=== PATIENT | female | born 1980 | race African-American/Black ===

== ENCOUNTER 2016-04-11 14:47 | Inpatient (IN) | payer MEDICAID, OTHER ==
[2016-04-11] VITALS (14 sets, daily range): BP systolic 75–145; BP diastolic 45–114; PULSE 90–136; RESP 14–24; TEMP 98–103; O2SAT 96–99
[~2016-04-11] VITALS: Ht 154.9 cm; Wt 64.6 kg
[~2016-04-11 14:47] MED LIST: HUMALOG SQ; METF500T PO; ZITHTAB PO
[2016-04-11] MEDS ORDERED: SODIUM CHLOR 0.9% 1000 ML INJ 1,000 ML IV SCH (15:20)
--- NOTE | 2016-04-11 15:24 | PD ---
HPI Chief Complaint: GI Complaint Time Seen by Provider: 15:06 Travel History International Travel<30 days: No Contact w/Intl Traveler<30days: No Traveled to known affect area: No History of Present Illness HPI The patient is a 35-year-old female who presents to the emergency department for nausea, vomiting, and abdominal pain. The patient states her symptoms started several days ago nasal congestion, sinus symptoms, and then nausea and vomiting. The patient now complains of left lower quadrant abdominal pain associated with her nausea and vomiting. The patient notes poor oral intake since secondary to her persistent nausea and vomiting. The patient denies any diarrhea, but states she's not had a bowel movement since yesterday. The patient denies any dysuria, frequency, or urgency. The patient's previous abdominal surgeries include section. Her last menstrual cycle was March 03, 2017, she currently denies . Patient does have a history of diabetes and takes metformin and sliding scale regular insulin. Patient denies any known history of diverticulitis, pancreatitis, or biliary colic. Symptoms are moderate without any alleviating or exacerbating factors. PFSH Past Medical History Hx Anticoagulant Therapy: No High Cholesterol: Yes Diabetes: Yes (TYPE 2) Diminished Hearing: No ?: Not LMP: 03/27/16 : 4 Para: 2 Miscarriage: 0 : 1 Ovarian Cysts: Yes Past Surgical History Section: Yes Social History Alcohol Use: Yes (OCC) Tobacco Use: No Substance Use: No Allergies-Medications (Allergen,Severity, Reaction): Coded Allergies: Amoxicillin (Verified Allergy, Severe, RASH, 04/11/16) Menthol (Verified Allergy, Intermediate, HIVES, BURNING, 04/11/16) Penicillin (Verified Allergy, Intermediate, RASH, 04/11/16) *MDRO Multi-Drug Resistant Organism (Verified Adverse Reaction, Unknown, 02/25/16) MRSA (groin wound) - 09/18/15 Uncoded Allergies: icy hot (Adverse Reaction, Mild, Burning, 11/23/13) Burning skin Reported Meds & Prescriptions Reported Meds & Active Scripts Active Reported Humalog Inj (Insulin Human Lispro) 1,000 Unit/10 Ml Vial 1-9 Units SQ ACHS Max dose at bedtime:( )units; sugars< 70,(0)units; sugars 150-199,(1)unit; sugars 200-249,(3)units; sugars 250-299,(5)units; sugars 300-349,(7)units; sugars more than 349,(9)units. Metformin (Metformin HCl) 500 Mg Tab 1,000 Mg PO BIDPC With meals Review of Systems Except as stated in HPI: all other systems reviewed are Neg General / Constitutional: Positive: Fever HENT: Positive: Congestion Cardiovascular: No: Chest Pain or Discomfort Respiratory: No: Shortness of Breath Gastrointestinal: Positive: Nausea, Vomiting, Abdominal Pain, No: Diarrhea Genitourinary: No: Dysuria Musculoskeletal: No: Myalgias Skin: No Rash Physical Exam Narrative GENERAL: Awake, alert, pleasant 35-year-old female who appears her stated age and is in no acute respiratory distress. SKIN: Warm and dry. HEAD: Atraumatic. Normocephalic. EYES: Pupils equal and round. No scleral icterus. No injection or drainage. ENT: No nasal bleeding or discharge. Dry Mucous Membranes. NECK: Trachea midline. No JVD. CARDIOVASCULAR: Regular, tachycardic with a heart rate of 110. RESPIRATORY: No accessory muscle use. Clear to auscultation. Breath sounds equal bilaterally. GASTROINTESTINAL: Abdomen soft, mild epigastric tenderness, moderate left lower quadrant tenderness. No rebound tenderness, guarding, or rigidity. MUSCULOSKELETAL: No obvious deformities. No clubbing. No cyanosis. No edema. NEUROLOGICAL: Awake and alert. No obvious cranial nerve deficits. Motor grossly within normal limits. Normal speech. PSYCHIATRIC: Appropriate mood and affect; insight and judgment normal. Data Data Last Documented VS Vital Signs Date Time Temp Pulse Resp B/P Pulse Ox O2 Delivery O2 Flow Rate FiO2 04/11/16 15:03 99.7 115 16 145/114 99 Orders Complete Blood Count With Diff (04/11/16 15:20) Comprehensive Metabolic Panel (04/11/16 15:20) Lipase (04/11/16 15:20) Lactic Acid (04/11/16 15:20) Urinalysis - C+S If Indicated (04/11/16 15:20) Ct Abd/Pel W/O Iv Contrast (04/11/16 15:20) Iv Access Insert/Monitor (04/11/16 15:20) Ecg Monitoring (04/11/16 15:20) Oximetry (04/11/16 15:20) Morphine Inj (Morphine Inj) (04/11/16 15:30) Ondansetron Inj (Zofran Inj) (04/11/16 15:30) Sodium Chlor 0.9% 1000 Ml Inj (Ns 1000 M (04/11/16 15:20) Sodium Chloride 0.9% Flush (Ns Flush) (04/11/16 15:30) Famotidine Inj (Pepcid Inj) (04/11/16 15:30) Sodium Chlor 0.9% 1000 Ml Inj (Ns 1000 M (04/11/16 16:30) Resp Blood Gas Venous (04/11/16 ) Prochlorperazine Inj (Compazine Inj) (04/11/16 16:30) Urine Culture (04/11/16 15:35) Ciprofloxacin 400 Mg Premix (Cipro 400 M (04/11/16 17:00) Blood Gas Venous (Vbg) (04/11/16 16:46) Labs Laboratory Tests Test 04/11/16 04/11/16 04/11/16 15:35 15:41 16:46 White Blood Count 5.3 TH/MM3 Red Blood Count 5.07 MIL/MM3 Hemoglobin 14.2 GM/DL Hematocrit 43.1 % Mean Corpuscular Volume 85.0 FL Mean Corpuscular Hemoglobin 28.0 PG Mean Corpuscular Hemoglobin 33.0 % Concent Red Cell Distribution Width 11.7 % Platelet Count 92 TH/MM3 Mean Platelet Volume 9.4 FL Neutrophils (%) (Auto) 91.9 % Lymphocytes (%) (Auto) 5.1 % Monocytes (%) (Auto) 2.8 % Eosinophils (%) (Auto) 0.1 % Basophils (%) (Auto) 0.1 % Neutrophils # (Auto) 4.9 TH/MM3 Lymphocytes # (Auto) 0.3 TH/MM3 Monocytes # (Auto) 0.1 TH/MM3 Eosinophils # (Auto) 0.0 TH/MM3 Basophils # (Auto) 0.0 TH/MM3 CBC Comment AUTO DIFF Differential Total Cells 100 Counted Neutrophils % (Manual) 60 % Band Neutrophils % 30 % Lymphocytes % 6 % Monocytes % 4 % Neutrophils # (Manual) 4.8 TH/MM3 Differential Comment FINAL DIFF MANUAL Platelet Estimate LOW Platelet Morphology Comment NORMAL Red Cell Morphology Comment NORMAL Urine Collection Type CLEAN CATCH Urine Color YELLOW Urine Turbidity SLIGHT Urine pH 6.0 Urine Specific [place] 1.031 Urine Protein 100 mg/dL Urine Glucose (UA) 1000 OR GREATER mg/dL Urine Ketones 40 mg/dL Urine Occult Blood SMALL Urine Nitrite POS Urine Bilirubin NEG Urine Leukocyte Esterase NEG Urine RBC 4-9 /hpf Urine WBC 25-49 /hpf Urine Squamous Epithelial 6-8 /hpf Cells Urine Amorphous Sediment MOD Urine Bacteria MANY /hpf Urine Hyaline Casts 0-2 /lpf Urine Fine Granular Casts 3-5 /lpf Urine Coarse Granular Casts 3-5 /lpf Microscopic Urinalysis Comment CULTURE INDICATED Urine Collection Time 1535 Sodium Level 132 MEQ/L Potassium Level 4.2 MEQ/L Chloride Level 94 MEQ/L Carbon Dioxide Level 26.7 MEQ/L Anion Gap 11 MEQ/L Blood Urea Nitrogen 20 MG/DL Creatinine 0.98 MG/DL Estimat Glomerular Filtration 77 ML/MIN Rate Random Glucose 278 MG/DL Calcium Level 9.1 MG/DL Total Bilirubin 0.5 MG/DL Aspartate Amino Transf 44 U/L (AST/SGOT) Alanine Aminotransferase 40 U/L (ALT/SGPT) Alkaline Phosphatase 58 U/L Total Protein 8.5 GM/DL Albumin 3.2 GM/DL Lipase 86 U/L Lactic Acid Level 1.6 mmol/L Blood Gas Puncture Site L AC Blood Gas Patient Temperature 98.6 Venous Blood pH 7.35 Venous Blood Partial Pressure 48 mmHg CO2 Venous Blood Partial Pressure 27 mmHg O2 Venous Blood HCO3 25 mmol/L Venous Blood Oxygen Saturation 43 % Venous Blood Oxygen Content 8.1 Vol % Venous Blood Base Excess 0.3 mmol/L Oxygen Delivery Device ROOM AIR Blood Gas Inspired Oxygen 21 % [facility] Medical Decision Making Medical Screen Exam Complete: Yes Emergency Medical Condition: Yes Medical Record Reviewed: Yes Interpretation(s) Laboratory Tests Test 04/11/16 04/11/16 15:35 15:41 White Blood Count 5.3 TH/MM3 Red Blood Count 5.07 MIL/MM3 Hemoglobin 14.2 GM/DL Hematocrit 43.1 % Mean Corpuscular Volume 85.0 FL Mean Corpuscular Hemoglobin 28.0 PG Mean Corpuscular Hemoglobin 33.0 % Concent Red Cell Distribution Width 11.7 % Platelet Count 92 TH/MM3 Mean Platelet Volume 9.4 FL Neutrophils (%) (Auto) 91.9 % Lymphocytes (%) (Auto) 5.1 % Monocytes (%) (Auto) 2.8 % Eosinophils (%) (Auto) 0.1 % Basophils (%) (Auto) 0.1 % Neutrophils # (Auto) 4.9 TH/MM3 Lymphocytes # (Auto) 0.3 TH/MM3 Monocytes # (Auto) 0.1 TH/MM3 Eosinophils # (Auto) 0.0 TH/MM3 Basophils # (Auto) 0.0 TH/MM3 CBC Comment AUTO DIFF Differential Total Cells 100 Counted Neutrophils % (Manual) 60 % Band Neutrophils % 30 % Lymphocytes % 6 % Monocytes % 4 % Neutrophils # (Manual) 4.8 TH/MM3 Differential Comment FINAL DIFF MANUAL Platelet Estimate LOW Platelet Morphology Comment NORMAL Red Cell Morphology Comment NORMAL Urine Collection Type CLEAN CATCH Urine Color YELLOW Urine Turbidity SLIGHT Urine pH 6.0 Urine Specific [place] 1.031 Urine Protein 100 mg/dL Urine Glucose (UA) 1000 OR GREATER mg/dL Urine Ketones 40 mg/dL Urine Occult Blood SMALL Urine Nitrite POS Urine Bilirubin NEG Urine Leukocyte Esterase NEG Urine RBC 4-9 /hpf Urine WBC 25-49 /hpf Urine Squamous Epithelial 6-8 /hpf Cells Urine Amorphous Sediment MOD Urine Bacteria MANY /hpf Urine Hyaline Casts 0-2 /lpf Urine Fine Granular Casts 3-5 /lpf Urine Coarse Granular Casts 3-5 /lpf Microscopic Urinalysis Comment CULTURE INDICATED Urine Collection Time 1535 Sodium Level 132 MEQ/L Potassium Level 4.2 MEQ/L Chloride Level 94 MEQ/L Carbon Dioxide Level 26.7 MEQ/L Anion Gap 11 MEQ/L Blood Urea Nitrogen 20 MG/DL Creatinine 0.98 MG/DL Estimat Glomerular Filtration 77 ML/MIN Rate Random Glucose 278 MG/DL Calcium Level 9.1 MG/DL Total Bilirubin 0.5 MG/DL Aspartate Amino Transf 44 U/L (AST/SGOT) Alanine Aminotransferase 40 U/L (ALT/SGPT) Alkaline Phosphatase 58 U/L Total Protein 8.5 GM/DL Albumin 3.2 GM/DL Lipase 86 U/L Lactic Acid Level 1.6 mmol/L CT of the abdomen and pelvis reveals sludge or debris in the gallbladder. Otherwise, appears unremarkable. No obvious etiology for patient's pelvic pain. No fluid present. Differential Diagnosis Differential diagnosis includes viral syndrome, gastritis, peptic ulcer disease , pancreatitis, gastroenteritis, diverticulitis, dehydration, influenza. Narrative Course IV was established, labs are drawn and sent, and the patient was placed on cardiac telemetry monitoring and continuous pulse oximetry monitoring. The patient was administered morphine, Zofran, Pepcid, and IV fluids. CT of the abdomen and pelvis was ordered to evaluate for possible diverticulitis. The patient's UA is positive for nitrites, WBCs, and ketones. Patient's white count is normal, however, she has bandemia at 30%. Therefore, patient was administered Cipro 400 mg intravenously as she is allergic to amoxicillin and penicillin. CT the abdomen and pelvis reveals sludge/debris in the gallbladder , otherwise unremarkable. There is no evidence of diverticulitis. Patient's blood glucose is mildly elevated in the 200s, however, VBG reveals pH is 7.35 and anion gap is normal, I do not believe this is DKA. The patient was administered 2 L of IV fluids. The patient has pyelonephritis with bandemia, mild tachycardia, and dirty UA. The patient be discharged home on Cipro and Zofran. She is advised to return if symptoms worsen or progress. Diagnosis Primary Impression: Pyelonephritis Patient Instructions: General Instructions Additional Instructions: Medications as directed. Follow-up with your primary physician. Return if symptoms worsen or progress. Med/Other Pt SpecificInfo: Prescription(s) given Scripts Ondansetron Odt (Zofran Odt)4 Mg Tab4 Mg SL Q6HR PRN (Nausea/Vomiting) #7 TAB Ref 0 Prov:Gerald Butts MD 04/11/16 Ciprofloxacin (Cipro)500 Mg [id number] Mg PO BID 7 Days Ref 0 Prov:Gerald Butts MD 04/11/16 Disposition: 01 DISCHARGE HOME Condition: Stable Gerald Butts MD Apr 11, 2016 15:24
[2016-04-11] MEDS ORDERED: SODIUM CHLORIDE 0.9% FLUSH 5 ML FLUSH IVF PRN ×2 (15:30→19:45)
[2016-04-11] MEDS ORDERED: MORPHINE SULFATE 4 MG/ML INJ IV PUSH ONE (15:30)
[2016-04-11] MEDS ORDERED: ONDANSETRON HCL 4 MG/2 ML VIAL IVP ONE (15:30)
[2016-04-11] MEDS ORDERED: FAMOTIDINE 20 MG/2 ML VIAL IV PUSH ONE (15:30)
[2016-04-11 16:14] LABS: AUTOMATED NEUTROPHIL # 4.9 TH/MM3 (1.8-7.7); BASOPHIL % 0.1 % (0.0-2.0); EOSINOPHIL % 0.1 % (0.0-4.0); HEMATOCRIT 43.1 % (35.0-46.0); LYMPH % 5.1 % (9.0-44.0); LYMPHOCYTE # 0.3 TH/MM3 (1.0-4.8); MONO % 2.8 % (0.0-8.0); NEUT % 91.9 % (16.0-70.0); PLATELET COUNT 92 TH/MM3 (150-450); RED BLOOD COUNT 5.07 MIL/MM3 (4.00-5.30); RED CELL DISTRIBUTION WIDTH 11.7 % (11.6-17.2); WHITE BLOOD COUNT 5.3 TH/MM3 (4.0-11.0)
[2016-04-11 16:16] LABS: BLOOD, URINE SMALL (NEG); KETONE, URINE 40 mg/dL (NEG)
[2016-04-11 16:21] LABS: HEMO FLAGS AUTO DIFF
[2016-04-11 16:25] LABS: GLUCOSE,URINE 1000 OR GREATER mg/dL (NEG); NITRITE,URINE POS (NEG)
[2016-04-11] MEDS ORDERED: PROCHLORPERAZINE INJ 10 MG/2 ML VIAL IVS ONE (16:30)
[2016-04-11] MEDS ORDERED: SODIUM CHLOR 0.9% 1000 ML INJ 1,000 ML IV ONE ×3 (16:30→22:00)
[2016-04-11 16:31] LABS: CHLORIDE 94 MEQ/L (98-107); SODIUM (NA) 132 MEQ/L (136-145)
[2016-04-11 16:32] LABS: METHOD OF COLLECTION CLEAN CATCH; URINE COLOR YELLOW (YELLW/STRAW)
[2016-04-11 16:33] LABS: BACTERIA, URINE MANY /hpf; COMMENT (UR) CULTURE INDICATED; COMMENT2 (UR) MUCOUS PRESENT; CULTURE IF INDICATED CULTURE INDICATED; HYALINE CAST, URINE 0-2 /lpf (RARE)
[2016-04-11 16:36] LABS: ANION GAP 11 MEQ/L (5-15); BICARBONATE 26.7 MEQ/L (21.0-32.0); BLOOD UREA NITROGEN 20 MG/DL (7-18)
[2016-04-11 16:39] LABS: ALT (GPT) 40 U/L (10-53); AST (GOT) 44 U/L (15-37); GLOMERULAR FILTRATION RATE 77 ML/MIN (>89)
[2016-04-11 16:41] LABS: BANDS 30 % (0-6); NEUTROPHIL # MANUAL DIFF 4.8 TH/MM3 (1.8-7.7); POLYS (SEG NEUTROPHILS) 60 % (16-70); TOTAL BILIRUBIN ADULT 0.5 MG/DL (0.2-1.0); WBC DIFF SAMPLE 100
[2016-04-11 16:42] LABS: ALKALINE PHOSPHATASE 58 U/L (45-117); PLATELET ESTIMATE SMEAR LOW (NORMAL); PLATELET MORPHOLOGY NORMAL (NORMAL); SCAN/DIFF FINAL DIFF MANUAL
[2016-04-11 16:45] LABS: POTASSIUM 4.2 MEQ/L (3.5-5.1)
--- NOTE | 2016-04-11 16:49 | RADHPO ---
EXAM DATE/TIME: 04/11/2016 15:52 [place] COMPARISON: No previous studies available for comparison. INDICATIONS : Left lower abdomen pain for four days. ORAL CONTRAST: No oral contrast ingested. RADIATION DOSE: 5.4 CTDIvol (mGy) MEDICAL HISTORY : Diabetes mellitus type 2. SURGICAL HISTORY : section. ENCOUNTER: Initial ACUITY: 4 - 6 days PAIN SCALE: 10/10 LOCATION: Left lower quadrant TECHNIQUE: Volumetric scanning of the abdomen and pelvis was performed. Using automated exposure control and adjustment of the mA and/or kV according to patient size, radiation dose was kept as low as reasonably achievable to obtain optimal diagnostic quality images. FINDINGS: The lung bases are clear. The liver, spleen, and pancreas are unremarkable. There is sludge or debr is in the gallbladder. Right and left kidneys are unremarkable. Region of the cecum and terminal il eum appear normal. Pelvic contents are unremarkable. CONCLUSION: Sludge or debris in the gallbladder. Otherwise, appears unremarkable. I do not see obvious etiology for patient's pelvic pain. There is no fluid present. Abhijit Garcia MD FACR on April 11, 2016 at 16:27 Board Certified Radiologist. This report was verified electronically.
[2016-04-11 16:52] LABS: BLOOD GAS VENOUS BASE EXCESS 0.3 mmol/L (-2-2); BLOOD GAS VENOUS HCO3 25 mmol/L (22-26); BLOOD GAS VENOUS O2 CONTENT 8.1 Vol % (9.0-17.0); BLOOD GAS VENOUS O2 HGB SAT 43 % (70-76); BLOOD GAS VENOUS PCO2 48 mmHg (44-48); BLOOD GAS VENOUS PO2 27 mmHg (35-40); BLOOD GAS VENOUS pH 7.35 (7.360-7.400); CRITICAL VALUE YES; TEMP CORR TO 98.6
[2016-04-11 16:53] LABS: DRAW SITE L AC; FIO2 21 %; OXYGEN DEVICE ROOM AIR; STAT YES
[2016-04-11] MEDS ORDERED: CIPR-9 PO (16:59)
[2016-04-11] MEDS ORDERED: ZOFR4TAB3 SL (16:59)
[2016-04-11] MEDS ORDERED: CIPROFLOXACIN 400 MG PREMIX 200 ML IV ONE (17:00)
[2016-04-11] MEDS ORDERED: IBUPROFEN 600 MG TAB PO ONE (19:45)
[2016-04-11] MEDS ORDERED: ACETAMINOPHEN 325 MG TAB PO ONE (19:45)
[2016-04-11] MEDS ORDERED: GLUCAGON 1 MG/ML VIAL OTHER PRN (19:45)
[2016-04-11] MEDS ORDERED: DEXTROSE 50% IN WATER 50 ML VIAL(D50) IV PUSH PRN (19:45)
[2016-04-11] MEDS ORDERED: SODIUM CHLORIDE 0.9% FLUSH 5 ML FLUSH FLUSH PRN (19:45)
[2016-04-11] MEDS ORDERED: BISACODYL 10 MG SUPP PR PRN (19:45)
--- NOTE | 2016-04-11 19:46 | PD ---
Physical Exam Date Seen by Provider: Apr 11, 2016 Time Seen by Provider: 19:40 Narrative GENERAL: Well-developed well-nourished ill-appearing female in no acute respiratory distress SKIN: Warm and dry. HEAD: Normocephalic. EYES: No scleral icterus. No injection or drainage. NECK: Supple, trachea midline. No JVD or lymphadenopathy. CARDIOVASCULAR: Increased regular rate and rhythm without murmurs, gallops, or rubs. RESPIRATORY: Breath sounds equal bilaterally. No accessory muscle use. GASTROINTESTINAL: Abdomen soft, nondistended; left lower quadrant tenderness to palpation without guarding or rebound MUSCULOSKELETAL: No cyanosis, or edema. BACK: Nontender without obvious deformity. Reproducible left CVA tenderness. Data Data Last Documented VS Vital Signs Date Time Temp Pulse Resp B/P Pulse Ox O2 Delivery O2 Flow Rate FiO2 04/11/16 19:20 20 04/11/16 19:18 103.0 132 113/60 96 04/11/16 18:33 Room Air Orders Complete Blood Count With Diff (04/11/16 15:20) Comprehensive Metabolic Panel (04/11/16 15:20) Lipase (04/11/16 15:20) Lactic Acid (04/11/16 15:20) Urinalysis - C+S If Indicated (04/11/16 15:20) Ct Abd/Pel W/O Iv Contrast (04/11/16 15:20) Iv Access Insert/Monitor (04/11/16 15:20) Ecg Monitoring (04/11/16 15:20) Oximetry (04/11/16 15:20) Morphine Inj (Morphine Inj) (04/11/16 15:30) Ondansetron Inj (Zofran Inj) (04/11/16 15:30) Sodium Chlor 0.9% 1000 Ml Inj (Ns 1000 M (04/11/16 15:20) Sodium Chloride 0.9% Flush (Ns Flush) (04/11/16 15:30) Famotidine Inj (Pepcid Inj) (04/11/16 15:30) Sodium Chlor 0.9% 1000 Ml Inj (Ns 1000 M (04/11/16 16:30) Resp Blood Gas Venous (04/11/16 ) Prochlorperazine Inj (Compazine Inj) (04/11/16 16:30) Urine Culture (04/11/16 15:35) Ciprofloxacin 400 Mg Premix (Cipro 400 M (04/11/16 17:00) Blood Gas Venous (Vbg) (04/11/16 16:46) Admit Order (Ed Use Only) (04/11/16 ) ^ Saline Lock (04/11/16 19:35) Resp Oxygen Humberto C Titrat 1-4 L (04/11/16 ) ^ Notify Dr: Other (04/11/16 19:35) Labs Laboratory Tests Test 04/11/16 04/11/16 04/11/16 15:35 15:41 16:46 White Blood Count 5.3 TH/MM3 Red Blood Count 5.07 MIL/MM3 Hemoglobin 14.2 GM/DL Hematocrit 43.1 % Mean Corpuscular Volume 85.0 FL Mean Corpuscular Hemoglobin 28.0 PG Mean Corpuscular Hemoglobin 33.0 % Concent Red Cell Distribution Width 11.7 % Platelet Count 92 TH/MM3 Mean Platelet Volume 9.4 FL Neutrophils (%) (Auto) 91.9 % Lymphocytes (%) (Auto) 5.1 % Monocytes (%) (Auto) 2.8 % Eosinophils (%) (Auto) 0.1 % Basophils (%) (Auto) 0.1 % Neutrophils # (Auto) 4.9 TH/MM3 Lymphocytes # (Auto) 0.3 TH/MM3 Monocytes # (Auto) 0.1 TH/MM3 Eosinophils # (Auto) 0.0 TH/MM3 Basophils # (Auto) 0.0 TH/MM3 CBC Comment AUTO DIFF Differential Total Cells 100 Counted Neutrophils % (Manual) 60 % Band Neutrophils % 30 % Lymphocytes % 6 % Monocytes % 4 % Neutrophils # (Manual) 4.8 TH/MM3 Differential Comment FINAL DIFF MANUAL Platelet Estimate LOW Platelet Morphology Comment NORMAL Red Cell Morphology Comment NORMAL Urine Collection Type CLEAN CATCH Urine Color YELLOW Urine Turbidity SLIGHT Urine pH 6.0 Urine Specific [place] 1.031 Urine Protein 100 mg/dL Urine Glucose (UA) 1000 OR GREATER mg/dL Urine Ketones 40 mg/dL Urine Occult Blood SMALL Urine Nitrite POS Urine Bilirubin NEG Urine Leukocyte Esterase NEG Urine RBC 4-9 /hpf Urine WBC 25-49 /hpf Urine Squamous Epithelial 6-8 /hpf Cells Urine Amorphous Sediment MOD Urine Bacteria MANY /hpf Urine Hyaline Casts 0-2 /lpf Urine Fine Granular Casts 3-5 /lpf Urine Coarse Granular Casts 3-5 /lpf Microscopic Urinalysis Comment CULTURE INDICATED Urine Collection Time 1535 Sodium Level 132 MEQ/L Potassium Level 4.2 MEQ/L Chloride Level 94 MEQ/L Carbon Dioxide Level 26.7 MEQ/L Anion Gap 11 MEQ/L Blood Urea Nitrogen 20 MG/DL Creatinine 0.98 MG/DL Estimat Glomerular Filtration 77 ML/MIN Rate Random Glucose 278 MG/DL Calcium Level 9.1 MG/DL Total Bilirubin 0.5 MG/DL Aspartate Amino Transf 44 U/L (AST/SGOT) Alanine Aminotransferase 40 U/L (ALT/SGPT) Alkaline Phosphatase 58 U/L Total Protein 8.5 GM/DL Albumin 3.2 GM/DL Lipase 86 U/L Lactic Acid Level 1.6 mmol/L Blood Gas Puncture Site L AC Blood Gas Patient Temperature 98.6 Venous Blood pH 7.35 Venous Blood Partial Pressure 48 mmHg CO2 Venous Blood Partial Pressure 27 mmHg O2 Venous Blood HCO3 25 mmol/L Venous Blood Oxygen Saturation 43 % Venous Blood Oxygen Content 8.1 Vol % Venous Blood Base Excess 0.3 mmol/L Oxygen Delivery Device ROOM AIR Blood Gas Inspired Oxygen 21 % [facility] Medical Record Reviewed: Yes Supervised Visit with MARYANN: No Interpretation(s) Laboratory Tests Test 04/11/16 04/11/16 04/11/16 15:35 15:41 16:46 White Blood Count 5.3 TH/MM3 Red Blood Count 5.07 MIL/MM3 Hemoglobin 14.2 GM/DL Hematocrit 43.1 % Mean Corpuscular Volume 85.0 FL Mean Corpuscular Hemoglobin 28.0 PG Mean Corpuscular Hemoglobin 33.0 % Concent Red Cell Distribution Width 11.7 % Platelet Count 92 TH/MM3 Mean Platelet Volume 9.4 FL Neutrophils (%) (Auto) 91.9 % Lymphocytes (%) (Auto) 5.1 % Monocytes (%) (Auto) 2.8 % Eosinophils (%) (Auto) 0.1 % Basophils (%) (Auto) 0.1 % Neutrophils # (Auto) 4.9 TH/MM3 Lymphocytes # (Auto) 0.3 TH/MM3 Monocytes # (Auto) 0.1 TH/MM3 Eosinophils # (Auto) 0.0 TH/MM3 Basophils # (Auto) 0.0 TH/MM3 CBC Comment AUTO DIFF Differential Total Cells 100 Counted Neutrophils % (Manual) 60 % Band Neutrophils % 30 % Lymphocytes % 6 % Monocytes % 4 % Neutrophils # (Manual) 4.8 TH/MM3 Differential Comment FINAL DIFF MANUAL Platelet Estimate LOW Platelet Morphology Comment NORMAL Red Cell Morphology Comment NORMAL Urine Collection Type CLEAN CATCH Urine Color YELLOW Urine Turbidity SLIGHT Urine pH 6.0 Urine Specific [place] 1.031 Urine Protein 100 mg/dL Urine Glucose (UA) 1000 OR GREATER mg/dL Urine Ketones 40 mg/dL Urine Occult Blood SMALL Urine Nitrite POS Urine Bilirubin NEG Urine Leukocyte Esterase NEG Urine RBC 4-9 /hpf Urine WBC 25-49 /hpf Urine Squamous Epithelial 6-8 /hpf Cells Urine Amorphous Sediment MOD Urine Bacteria MANY /hpf Urine Hyaline Casts 0-2 /lpf Urine Fine Granular Casts 3-5 /lpf Urine Coarse Granular Casts 3-5 /lpf Microscopic Urinalysis Comment CULTURE INDICATED Urine Collection Time 1535 Sodium Level 132 MEQ/L Potassium Level 4.2 MEQ/L Chloride Level 94 MEQ/L Carbon Dioxide Level 26.7 MEQ/L Anion Gap 11 MEQ/L Blood Urea Nitrogen 20 MG/DL Creatinine 0.98 MG/DL Estimat Glomerular Filtration 77 ML/MIN Rate Random Glucose 278 MG/DL Calcium Level 9.1 MG/DL Total Bilirubin 0.5 MG/DL Aspartate Amino Transf 44 U/L (AST/SGOT) Alanine Aminotransferase 40 U/L (ALT/SGPT) Alkaline Phosphatase 58 U/L Total Protein 8.5 GM/DL Albumin 3.2 GM/DL Lipase 86 U/L Lactic Acid Level 1.6 mmol/L Blood Gas Puncture Site L AC Blood Gas Patient Temperature 98.6 Venous Blood pH 7.35 Venous Blood Partial Pressure 48 mmHg CO2 Venous Blood Partial Pressure 27 mmHg O2 Venous Blood HCO3 25 mmol/L Venous Blood Oxygen Saturation 43 % Venous Blood Oxygen Content 8.1 Vol % Venous Blood Base Excess 0.3 mmol/L Oxygen Delivery Device ROOM AIR Blood Gas Inspired Oxygen 21 % Differential Diagnosis Please refer to Dr. Butts's dictation Narrative Course At time of anticipated discharge patient was identified to have fever of 10 3F sinus tachycardia 133 heart rate with within normal range blood pressure 113/60 with a map of 70; however patient reports that she does continue to feel ill patient has acute pyelonephritis with sepsis and will discuss admission with [facility] MD for ongoing inpatient management. Patient is willing to be admitted to the hospital. IV access reintroduced, normal saline 1 L administered patient is artery received 2 L during ER visit; blood cultures obtained second lactic acid obtained; patient also administered antipyretics acetaminophen and ibuprofen. Sepsis Criteria SIRS Criteria (2 or more): Temp > 100.9 or < 96.8 (99.7F; 103F), Heart rate over 90 (115;132), WBC > 89275, < 4000 or > 10% bands (30% bandemia) Sepsis Criteria (SIRS+source): Infect source susp/known (urine) Physician Communication Physician Communication case discussed with Dr Franco --will admit; patient will be admitted to the ICU, residential glazier, Dr Judd, aware of case and admission to [facility] service Diagnosis Primary Impression: Pyelonephritis Additional Impressions: Sepsis Qualified Code: A41.9 - Sepsis, due to unspecified organism Diabetes Admitting Information Admitting Physician Requests: Admit Referrals: Family Practice Physician call for appointment Patient Instructions: General Instructions, Narcotic given in the ED, Urinary Tract Infection in Women (ED) Departure Forms: Tests/Procedures Additional Instruction: Medications as directed. Follow-up with your primary physician. Return if symptoms worsen or progress. Scripts Ondansetron Odt (Zofran Odt)4 Mg Tab4 Mg SL Q6HR PRN (Nausea/Vomiting) #7 TAB Ref 0 Prov:Gerald Butts MD 04/11/16 Ciprofloxacin (Cipro)500 Mg [id number] Mg PO BID 7 Days Ref 0 Prov:Gerald Butts MD 04/11/16 Disposition: 01 DISCHARGE HOME Condition: Stable Diane Díaz MD Apr 11, 2016 19:45
[2016-04-11] MEDS: SODIUM CHLOR 0.9% 1000 ML INJ 1,000 ML IV SCH (19:50)
[2016-04-11] MEDS ORDERED: INSULIN ASPART SUPPLEMENTAL SCALE SQ SCH (21:00)
[2016-04-11] MEDS ORDERED: SODIUM CHLORIDE 0.9% FLUSH 5 ML FLUSH IVF SCH (21:00)
[2016-04-11] MEDS: SODIUM CHLORIDE 0.9% FLUSH 5 ML FLUSH FLUSH SCH (21:00)
[2016-04-11] MEDS ORDERED: CHLORHEXIDINE GLUCONATE 2 % 1 PACK (2 CLOTHS) TOP PRN (22:00)
[2016-04-11] MEDS ORDERED: MISCELLANEOUS NURSING INFORMATION XX SCH (22:00)
[2016-04-11] MEDS: ACETAMINOPHEN/HYDROcodone 325 MG/5 MG TAB PO PRN (22:16)
[2016-04-12] VITALS (62 sets, daily range): BP systolic 66–114; BP diastolic 40–82; PULSE 82–120; RESP 12–28; TEMP 98.1–103.3; O2SAT 96–98
[2016-04-12] MEDS ORDERED: NOREPINEPHRINE-DEXTROSE DRIP 250 ML IV ONE (01:57)
[2016-04-12] MEDS ORDERED: NOREPINEPHRINE 4 MG/D5W 250 ML IV SCH (02:00)
[2016-04-12 02:19] LABS: BLOOD GAS BASE EXCESS -6.4 mmol/L (-2-2); BLOOD GAS CARBOXYHEMOGLOBIN 1.3 % (0-4); BLOOD GAS HCO3 18 mmol/L (22-26); BLOOD GAS METHEMOGLOBIN 0.7 % (0-2); BLOOD GAS O2 HGB SATURATION 96 % (90-100); BLOOD GAS OXYGEN CONTENT 14.3 Vol % (12.0-20.0); BLOOD GAS PCO2 32 mmHg (38-42); BLOOD GAS PO2 96 mmHg (61-120); BLOOD GAS TOTAL HGB 10.5 G/DL (12.0-16.0); CRITICAL VALUE NO; DRAW SITE RT BRACHIAL; FIO2 21 %; NUMBER OF ARTERIAL PUNCTURES 2; OXYGEN DEVICE ROOM AIR; STAT YES
[2016-04-12] MEDS: INSULIN ASPART SUPPLEMENTAL SCALE SQ SCH ×4 (02:45→17:25)
[2016-04-12] MEDS: CHLORHEXIDINE GLUCONATE 2 % 1 PACK (2 CLOTHS) TOP SCH (04:00)
[2016-04-12] MEDS: SODIUM CHLOR 0.9% 1000 ML INJ 1,000 ML IV SCH ×5 (04:57→22:54)
[2016-04-12 06:12] LABS: BASOPHIL % 0.1 % (0.0-2.0); EOSINOPHIL # 0.1 TH/MM3 (0-0.4); EOSINOPHIL % 1.5 % (0.0-4.0); HEMATOCRIT 34.3 % (35.0-46.0); LYMPH % 6.5 % (9.0-44.0); LYMPHOCYTE # 0.2 TH/MM3 (1.0-4.8); MEAN CELL VOLUME 85.3 FL (80.0-100.0); MEAN CORPUSCULAR HEMOGLOBIN 27.3 PG (27.0-34.0); MONO % 4.3 % (0.0-8.0); NEUT % 87.6 % (16.0-70.0); PLATELET COUNT 57 TH/MM3 (150-450); RED BLOOD COUNT 4.02 MIL/MM3 (4.00-5.30); RED CELL DISTRIBUTION WIDTH 11.9 % (11.6-17.2); WHITE BLOOD COUNT 3.5 TH/MM3 (4.0-11.0)
[2016-04-12] MEDS ORDERED: VANCOMYCIN 1,000 MG/NS 250 ML IV ONE ×2 (06:15)
[2016-04-12] MEDS: ACETAMINOPHEN/HYDROcodone 325 MG/5 MG TAB PO PRN ×4 (06:18→23:01)
[2016-04-12 06:23] LABS: HEMO FLAGS AUTO DIFF
[2016-04-12] MEDS ORDERED: AZTREONAM 2,000 MG/NS 100 ML IV ONE ×2 (06:30)
--- NOTE | 2016-04-12 06:40 | HHI.HP ---
HPI Service Critical Care Medicine Primary Care Physician No Primary Care Physician Admission Diagnosis pyelonephritis; sepsis Diagnosis: (1) Septic shock Diagnosis: Principal (2) Pyelonephritis Diagnosis: Principal (3) Lactic acidosis Diagnosis: Principal (4) Thrombocytopenia Diagnosis: Principal (5) Hyperglycemia Diagnosis: Principal (6) Dehydration Diagnosis: Principal (7) Abdominal pain Diagnosis: Secondary (8) Poorly controlled diabetes mellitus Diagnosis: Secondary (9) Type 2 diabetes mellitus Diagnosis: Secondary Chief Complaint: Septic shock UTI Travel History International Travel<30 Days: No Contact w/Intl Traveler <30 Da: No Traveled to Known Affected Are: No Sepsis Criteria SIRS Criteria (2 or more): Temp > 100.9 or < 96.8, WBC > 40568, < 4000 or > 10 % bands Sepsis Criteria (SIRS+source): Infect source susp/known Severe Sepsis (+one): Hypotension, Lactate >2 Septic Shock Criteria: Unresponsive to 30ml/kg fluid bolus Criteria Outcome: Meets septic shock criteria History of Present Illness Patient is a 35-year-old female with history of type 2 diabetes for the last 19 years, history of a left groin abscess with MRSA last year, who presented to the emergency department yesterday with symptoms of fever nausea vomiting and left lower quadrant abdominal pain. The patient noted poor oral intake since due to nausea and vomiting. The patient denies any diarrhea, denies any dysuria, frequency, or urgency, but did notice change of color in her urine. She does have a history of diabetes and takes metformin and sliding scale regular insulin. In the emergency department patient was found to have 103F sinus tachycardia 133 heart rate with within normal range blood pressure 113/60 with a map of 70 initially. Patient received IV ciprofloxacin, 3 L normal saline boluses and I have submitted to hospitalist service initially and received 1 dose of IV ciprofloxacin in the ED. Patient had white count of 5.3 with 30% bandemia. Platelet count was 92 initially later dropped to 57, second lactic acid was 2.9. Patient's blood pressure continued to deteriorate and remain persistently in mid 70s despite receiving a total of 6 L IV normal saline boluses. Critical care medicine was consulted and patient was started on Levophed at 8 mics per minute. I evaluated the patient in the ICU. She appears to be in mild-to- moderate distress, still remains on Levophed for septic shock. I have started her on IV vancomycin and IV Azactam. Most likely source of infection is acute pyelonephritis. CT abdomen pelvis shows gallbladder sludge no other acute findings Review of Systems ROS Limitations: Other (as per HPI) Past Family Social History Allergies: Coded Allergies: Amoxicillin (Verified Allergy, Severe, RASH, 04/11/16) Menthol (Verified Allergy, Intermediate, HIVES, BURNING, 04/11/16) Penicillin (Verified Allergy, Intermediate, RASH, 04/11/16) *MDRO Multi-Drug Resistant Organism (Verified Adverse Reaction, Unknown, 02/25/16) MRSA (groin wound) - 09/18/15 Uncoded Allergies: icy hot (Adverse Reaction, Mild, Burning, 11/23/13) Burning skin Past Medical History Type 2 Diabetes Hx of L groin abscess August 2015 Viral meningitis 2001 Past Surgical History 2 I&D of left groin abscess August 2015 Reported Medications Humalog sliding scale Metformin 1,000 Mg PO BID Active Ordered Medications Reviewed, received IV ciprofloxacin in the ED Family History Reviewed Social History Smokes 1-2 cigarettes per day, occasionally uses alcohol socially Physical Exam Vital Signs Vital Signs Date Time Temp Pulse Resp B/P Pulse Ox O2 Delivery O2 Flow Rate FiO2 04/12/16 06:16 102 16 107/67 04/12/16 06:15 106 18 107/67 04/12/16 06:00 102 23 107/61 04/12/16 05:45 104 15 98/62 04/12/16 05:30 100 23 96/53 04/12/16 05:15 100 24 98/61 04/12/16 04:45 96 24 100/67 04/12/16 04:15 98 17 108/68 97 04/12/16 04:00 98.1 98 13 105/61 98 04/12/16 03:45 86 18 102/56 98 04/12/16 03:30 86 16 92/82 98 04/12/16 03:15 86 20 97/58 98 04/12/16 03:00 88 19 97/55 98 04/12/16 02:30 82 17 80/49 98 04/12/16 02:21 84 18 96/58 97 04/12/16 02:00 90 12 66/40 97 04/12/16 01:00 86 15 70/41 97 04/12/16 00:00 99.0 90 17 78/52 96 04/11/16 23:44 90 18 85/51 04/11/16 23:43 99.0 90 14 86/49 04/11/16 23:32 95 20 86/51 97 04/11/16 23:16 22 04/11/16 23:07 98.0 94 20 78/46 96 Room Air 04/11/16 22:45 96 20 75/45 04/11/16 22:25 110 20 85/55 98 Room Air 04/11/16 22:00 116 20 90/53 98 04/11/16 21:45 100.5 111 20 84/52 97 Room Air 04/11/16 21:20 101.2 110 20 82/67 98 Room Air 04/11/16 20:52 97 21 04/11/16 20:20 102.1 136 24 108/65 98 Room Air 04/11/16 19:20 20 04/11/16 19:18 103.0 132 24 113/60 96 04/11/16 18:33 99 Room Air 04/11/16 15:03 99.7 115 16 145/114 99 Physical Exam GENERAL: Awake, alert, 35-year-old female who is in mild distress, appears ill SKIN: Warm and dry. HEAD: Atraumatic. Normocephalic. EYES: Pupils equal and round. No scleral icterus. No injection or drainage. ENT: No nasal bleeding or discharge. Dry Mucous Membranes. NECK: Trachea midline. No JVD. CARDIOVASCULAR: Tachycardic with a heart rate of 105-110. Blood pressure 90/60 on Levophed 6 mcg/m. No murmurs RESPIRATORY: No accessory muscle use. Clear to auscultation. Breath sounds equal bilaterally. GASTROINTESTINAL: Abdomen soft, mild but diffuse tenderness, mild left and right lower quadrant tenderness. No clear flank tenderness MUSCULOSKELETAL: No obvious deformities. No clubbing. No cyanosis. No edema. NEUROLOGICAL: Awake and alert. No obvious cranial nerve deficits. Motor grossly within normal limits. Normal speech. Laboratory Laboratory Tests Test 04/11/16 04/11/16 04/11/16 04/11/16 15:35 15:41 16:46 20:08 White Blood Count 5.3 Red Blood Count 5.07 Hemoglobin 14.2 Hematocrit 43.1 Mean Corpuscular Volume 85.0 Mean Corpuscular Hemoglobin 28.0 Mean Corpuscular Hemoglobin 33.0 Concent Red Cell Distribution Width 11.7 Platelet Count 92 Mean Platelet Volume 9.4 Neutrophils (%) (Auto) 91.9 Lymphocytes (%) (Auto) 5.1 Monocytes (%) (Auto) 2.8 Eosinophils (%) (Auto) 0.1 Basophils (%) (Auto) 0.1 Neutrophils # (Auto) 4.9 Lymphocytes # (Auto) 0.3 Monocytes # (Auto) 0.1 Eosinophils # (Auto) 0.0 Basophils # (Auto) 0.0 CBC Comment AUTO DIFF Differential Total Cells 100 Counted Neutrophils % (Manual) 60 Band Neutrophils % 30 Lymphocytes % 6 Monocytes % 4 Neutrophils # (Manual) 4.8 Differential Comment FINAL DIFF MANUAL Platelet Estimate LOW Platelet Morphology Comment NORMAL Red Cell Morphology Comment NORMAL Urine Collection Type CLEAN CATCH Urine Color YELLOW Urine Turbidity SLIGHT Urine pH 6.0 Urine Specific [place] 1.031 Urine Protein 100 Urine Glucose (UA) 1000 OR GREATER Urine Ketones 40 Urine Occult Blood SMALL Urine Nitrite POS Urine Bilirubin NEG Urine Leukocyte Esterase NEG Urine RBC 4-9 Urine WBC 25-49 Urine Squamous Epithelial 6-8 Cells Urine Amorphous Sediment MOD Urine Bacteria MANY Urine Hyaline Casts 0-2 Urine Fine Granular Casts 3-5 Urine Coarse Granular Casts 3-5 Microscopic Urinalysis Comment CULTURE INDICATED Urine Collection Time 1535 Sodium Level 132 Potassium Level 4.2 Chloride Level 94 Carbon Dioxide Level 26.7 Anion Gap 11 Blood Urea Nitrogen 20 Creatinine 0.98 Estimat Glomerular Filtration 77 Rate Random Glucose 278 Calcium Level 9.1 Total Bilirubin 0.5 Aspartate Amino Transf 44 (AST/SGOT) Alanine Aminotransferase 40 (ALT/SGPT) Alkaline Phosphatase 58 Total Protein 8.5 Albumin 3.2 Lipase 86 Lactic Acid Level 1.6 2.9 Blood Gas Puncture Site L AC Blood Gas Patient Temperature 98.6 Venous Blood pH 7.35 Venous Blood Partial Pressure 48 CO2 Venous Blood Partial Pressure 27 O2 Venous Blood HCO3 25 Venous Blood Oxygen Saturation 43 Venous Blood Oxygen Content 8.1 Venous Blood Base Excess 0.3 Oxygen Delivery Device ROOM AIR Blood Gas Inspired Oxygen 21 Test 04/12/16 04/12/16 02:05 04:37 Blood Gas Puncture Site RT BRACHIAL Blood Gas Patient Temperature 37.0 Blood Gas HCO3 18 Blood Gas Base Excess -6.4 Blood Gas Oxygen Saturation 96 Arterial Blood pH 7.37 Arterial Blood Partial 32 Pressure CO2 Arterial Blood Partial 96 Pressure O2 Arterial Blood Oxygen Content 14.3 Arterial Blood 1.3 Carboxyhemoglobin Arterial Blood Methemoglobin 0.7 Blood Gas Hemoglobin 10.5 Oxygen Delivery Device ROOM AIR Blood Gas Inspired Oxygen 21 Lactic Acid Level 0.8 White Blood Count 3.5 Red Blood Count 4.02 Hemoglobin 11.0 Hematocrit 34.3 Mean Corpuscular Volume 85.3 Mean Corpuscular Hemoglobin 27.3 Mean Corpuscular Hemoglobin 32.0 Concent Red Cell Distribution Width 11.9 Platelet Count 57 Mean Platelet Volume 9.2 Neutrophils (%) (Auto) 87.6 Lymphocytes (%) (Auto) 6.5 Monocytes (%) (Auto) 4.3 Eosinophils (%) (Auto) 1.5 Basophils (%) (Auto) 0.1 Neutrophils # (Auto) 3.0 Lymphocytes # (Auto) 0.2 Monocytes # (Auto) 0.2 Eosinophils # (Auto) 0.1 Basophils # (Auto) 0.0 CBC Comment AUTO DIFF Date/Time Procedure Status Source Growth 04/11/16 20:10 Aerobic Blood Culture Received Blood Peripheral Pending 04/11/16 20:10 Anaerobic Blood Culture Received Blood Peripheral Pending 04/11/16 15:35 Urine Culture Received Urine Clean Catch Pending Result Diagram: 04/12/16 0437 04/11/[address] abdomen and pelvis shows gallbladder sludge Septic Shock Reassessment Heart: Other (tachycardic) Lungs: Clear Skin: Warm Peripheral Pulses: Weak Right Radial Weak Left Radial Capillary Refill: Sluggish Assessment and Plan Problem List: (1) Septic shock ICD Code: A41.9 Status: Acute (2) Pyelonephritis ICD Code: N12 Status: Acute (3) Lactic acidosis ICD Code: E87.2 Status: Acute (4) Hyperglycemia ICD Code: R73.9 Status: Acute (5) Type 2 diabetes mellitus ICD Code: E11.9 Status: Acute Assessment and Plan NEURO: -As needed Tylenol and [place] for pain control RESP: -Nasal cannula oxygen if needed, DuoNeb every 6 hours when necessary -Consult about tobacco cessation CV: Septic shock Lactic acidosis -Normal saline IV fluids received total of 6 L so far, continue maintenance fluid at 84 mL per hour -Levophed currently at 8 mics per minute, attempt to wean keeping map above 65 -Hydration present if needed GI: -1999 ADA diet, IV Protonix for GI prophylaxis -Gallbladder ultrasound : Dehydration Acute kidney insufficiency -Monitor renal function closely. Orozco catheter. -Continue aggressive hydration ID: Septic shock Acute pyelonephritis Lactic acidosis -Received IV ciprofloxacin in the ED. I have started her on IV vancomycin and IV Azactam -Follow up on blood and urine cultures HEME: Thrombocytopenia -Monitor CBC, CMP, coags -Thrombocytopenia is most likely secondary to DIC from severe sepsis ENDO: Hyperglycemia Type 2 diabetes -Sliding-scale insulin, add Levemir 10 units every 12 -Electrolyte replacement per protocol PROPH: -Bilateral lower extremity SCDs. Avoid chemical DVT prophylaxis because of thrombocytopenia LINES: -Utilize peripheral IVs, central line if needed for continued Levophed administration (Will attempt to wean) CC time 42 min Code Status Full Discussed Condition With Patient and bedside RN Lico Patel MD Apr 12, 2016 06:40
[2016-04-12 06:42] LABS: BICARBONATE 18.1 MEQ/L (21.0-32.0); CALCIUM-PROTEIN CORRECTED 7.7 MG/DL (8.5-10.1); POTASSIUM 3.6 MEQ/L (3.5-5.1); TOTAL BILIRUBIN ADULT 0.7 MG/DL (0.2-1.0)
[2016-04-12] MEDS ORDERED: Vancomycin Consult Pharmacy 1 EA OTHER SCH (06:45)
[2016-04-12 07:00] LABS: BANDS 21 % (0-6); PLATELET ESTIMATE SMEAR LOW (NORMAL); PLATELET MORPHOLOGY NORMAL (NORMAL); POLYS (SEG NEUTROPHILS) 66 % (16-70); SCAN/DIFF FINAL DIFF MANUAL; WBC DIFF SAMPLE 100
[2016-04-12] MEDS ORDERED: MAGNESIUM OXIDE 400 MG TAB PO PRN (07:00)
[2016-04-12] MEDS ORDERED: MAGNESIUM SULFATE INJ 2 GM in SODIUM CHLORIDE 0.9% INJ 96 ML IV PRN (07:00)
[2016-04-12] MEDS ORDERED: POTASSIUM PHOSPHATE MONOBASIC 500 MG TAB PO/TUBE PRN (07:00)
[2016-04-12] MEDS ORDERED: POTASSIUM PHOSPHATE MONOBASIC 500 MG TAB PO PRN (07:00)
[2016-04-12] MEDS ORDERED: POTASSIUM CHLOR 40 MEQ PREMIX 100 ML IV PRN ×2 (07:00)
[2016-04-12] MEDS ORDERED: POTASSIUM CHLOR 20 MEQ PREMIX 100 ML IV PRN (07:00)
[2016-04-12] MEDS ORDERED: SODIUM CHLORIDE 0.9% FLUSH 5 ML FLUSH IV FLUSH PRN (07:00)
[2016-04-12] MEDS ORDERED: RESP: ALBUTEROL 2.5 MG/IPRATROPIUM 0.5 MG NEB (PRN) INH (07:00)
[2016-04-12] MEDS ORDERED: CHLORHEXIDINE GLUCONATE 2 % 1 PACK (2 CLOTHS) TOP PRN (07:00)
[2016-04-12] MEDS ORDERED: MAGNESIUM SULFATE INJ 4 GM in SODIUM CHLORIDE 0.9% INJ 92 ML IV PRN (07:00)
[2016-04-12] MEDS ORDERED: MISCELLANEOUS NURSING INFORMATION XX SCH (07:00)
[2016-04-12] MEDS ORDERED: POTASSIUM PHOSPHATE INJ 30 MMOL in SODIUM CHLOR 0.9% 250 ML INJ 250 ML IV PRN (07:00)
[2016-04-12] MEDS ORDERED: POTASSIUM CL 40 MEQ/30 ML LIQ UDC PO/TUBE PRN ×2 (07:00)
--- NOTE | 2016-04-12 09:20 | RADHPO ---
EXAM DATE/TIME: 04/12/2016 13:19 [facility] COMPARISON: CT ABDOMEN & PELVIS W/O CONTRAST, April 11, 2016, 15:52. INDICATIONS : Nausea and vomiting. MEDICAL HISTORY : Hypercholesterolemia. Nausea. Vomiting. Viral meningitis. Ovarian cysts. Diabetes. SURGICAL HISTORY : section. Endocrine surgery. ENCOUNTER: Initial ACUITY: 4-6 days PAIN SCORE: 4/10 LOCATION: Bilateral upper quadrant abdomen. MEASUREMENTS: LIVER: 21.9 cm length COMMON DUCT: 4 mm RIGHT KIDNEY: 12.9 x 5.2 x 6.0 cm SPLEEN: 10.8 cm length FINDINGS: Ultrasound of the upper abdomen demonstrates increased echogenicity of the liver compatible with fatt y infiltration or hepatocellular disease. The spleen is unremarkable. There is dilatation of the intr ahepatic ducts more prominent in the left lobe than the right lobe within normal-appearing common gina e duct. No gallstones are seen. There is pericholecystic fluid. The pancreas demonstrates no evidence of mass and there is no dilatation of the pancreatic duct. There is hepatopedal flow within the port al vein. The right kidney is unremarkable. CONCLUSION: 1. Pericholecystic fluid with dilatation of the intrahepatic ducts but no common duct dilatation. 2. Cholecystitis is not excluded. Intrahepatic duct dilatation without common duct dilatation. MRCP c ould be performed for further evaluation if clinically indicated. Brock Gross MD on April 12, 2016 at 9:15 Board Certified Radiologist. This report was verified electronically.
[2016-04-12] MEDS: SODIUM CHLORIDE 0.9% FLUSH 5 ML FLUSH FLUSH SCH ×2 (11:01→20:16)
[2016-04-12] MEDS: SODIUM CHLORIDE 0.9% FLUSH 5 ML FLUSH IV FLUSH SCH ×2 (11:01→22:08)
[2016-04-12] MEDS: PANTOPRAZOLE SODIUM 40 MG VIAL IV SCH (11:01)
[2016-04-12] MEDS: INSULIN DETEMIR 100 UNITS/ML VIAL SQ SCH ×2 (11:02→21:00)
[2016-04-12] MEDS: AZTREONAM INJ 2,000 MG in SODIUM CHLORIDE 0.9% INJ 100 ML IV SCH ×3 (11:03→23:18)
[2016-04-12] MEDS: VANCOMYCIN INJ 750 MG in SODIUM CHLOR 0.9% 250 ML INJ 250 ML IV SCH (17:20)
[2016-04-12] MEDS ORDERED: VANCOMYCIN INJ 750 MG in SODIUM CHLOR 0.9% 250 ML INJ 250 ML IV SCH (18:00)
[2016-04-12] MEDS: ONDANSETRON HCL 4 MG/2 ML VIAL IVP PRN (20:16)
[2016-04-12] MEDS: SODIUM PHOSPHATE INJ 30 MMOL in SODIUM CHLOR 0.9% 250 ML INJ 240 ML IV PRN (20:59)
--- NOTE | 2016-04-12 21:24 | PD.CONS ---
HPI History of Present Illness This is a 35 year old female who presents to the emergency room with complaints of abdominal pain nausea vomiting fever chills she states that her problems started on with her urine being cloudy she thought she may have a UTI so she increased her intake of fluids but things started getting worse and she began to have abdominal pain was mostly in the lower abdomen and left side no distinct radiation no exacerbating or alleviating factors she was having a fever and chills nausea and vomiting she had a little bit of the diarrhea but no mucus or blood she took Tylenol and by Tuesday things got much worse and so she decided to resent to the emergency room currently she feels she still has the same pain but not as much nausea and vomiting she does report having had an abscess in her left groin last year and she is a diabetic and has been a diabetic since the age of 17 FOR[facility]LY [facility], [facility] Past Medical History Diabetes Viral meningitis Left groin abscess Past Surgical History I&D 2 C-sections Coded Allergies: Amoxicillin (Verified Allergy, Severe, RASH, 04/11/16) Menthol (Verified Allergy, Intermediate, HIVES, BURNING, 04/11/16) Penicillin (Verified Allergy, Intermediate, RASH, 04/11/16) *MDRO Multi-Drug Resistant Organism (Verified Adverse Reaction, Unknown, MRSA, 04/12/16) MRSA (groin wound) - 09/18/15 Uncoded Allergies: icy hot (Adverse Reaction, Mild, Burning, 11/23/13) Burning skin Medications Metformin and insulin Family History Significant for diabetes her mom or dad and her son they're is also cardiovascular and hypertension Social History Occasional alcohol and rare tobacco Review of Systems ROS Review of systems Patient has sinus headaches but no dizziness blurry vision, denies any chest pain shortness of breath cough fever chills, Denies any palpitations or fatigue denies any hematuria, but complains of cloudy urine denies any numbness tingling or weakness, denies any skin rash pruritus or jaundice, denies any easy bruising or bleeding tendency, denies any recent change in mood GI Exam Vitals I&O Vital Signs Date Time Temp Pulse Resp B/P Pulse Ox O2 Delivery O2 Flow Rate FiO2 04/12/16 19:31 110 21 96/59 04/12/16 19:01 112 25 103/64 04/12/16 18:01 100.0 116 20 102/64 04/12/16 17:30 101.9 120 21 113/61 1617 17:00 120 20 114/69 1617 16:29 100.8 118 26 106/70 04/12/16 15:49 114 23 96/63 16/17 15:16 112 22 104/61 04/12/16 15:01 112 18 97/63 04/12/16 15:01 112 18 97/63 04/12/16 14:46 108 15 98/59 04/12/16 14:31 108 24 97/58 04/12/16 14:16 108 21 90/66 04/12/16 14:16 108 21 90/66 04/12/16 14:01 108 15 92/65 04/12/16 13:46 108 18 80/63 04/12/16 13:31 108 17 100/64 04/12/16 13:16 108 15 91/59 04/12/16 13:01 104 22 96/56 04/12/16 13:01 104 22 96/56 04/12/16 13:00 110 15 04/12/16 12:46 108 18 100/58 04/12/16 12:31 106 16 100/58 04/12/16 12:16 104 17 96/60 04/12/16 12:01 104 16 98/59 04/12/16 11:46 102 19 96/59 04/12/16 11:31 102 17 102/59 04/12/16 11:16 100 25 92/64 04/12/16 11:01 96 17 91/63 04/12/16 10:46 98 19 91/59 04/12/16 09:15 98 12 99/69 04/12/16 09:00 98 15 87/61 04/12/16 08:45 92 13 83/54 04/12/17 08:45 92 13 83/54 17 08:38 97 21 17 08:37 100 16 90/54 1617 08:30 100 17 90/54 1617 08:15 100 17 98/62 04/12/16 08:00 98.4 102 15 99/59 17 08:00 102 17 07:45 102 19 91/61 04/12/16 07:30 100 16 97/62 04/12/16 07:15 106 16 99/58 04/12/16 07:00 106 17 106/56 04/12/16 06:16 102 16 107/67 04/12/16 06:15 106 18 107/67 04/12/16 06:00 102 23 107/61 04/12/16 05:45 104 15 98/62 04/12/16 05:30 100 23 96/53 04/12/16 05:15 100 24 98/61 04/12/16 04:45 96 24 100/67 04/12/16 04:15 98 17 108/68 97 04/12/16 04:00 98.1 98 13 105/61 98 04/12/16 03:45 86 18 102/56 98 04/12/16 03:30 86 16 92/82 98 04/12/16 03:15 86 20 97/58 98 04/12/16 03:00 88 19 97/55 98 04/12/16 02:30 82 17 80/49 98 04/12/16 02:21 84 18 96/58 97 04/12/16 02:00 90 12 66/40 97 04/12/16 01:00 86 15 70/41 97 04/12/16 00:00 99.0 90 17 78/52 96 04/11/16 23:44 90 18 85/51 04/11/16 23:43 99.0 90 14 86/49 04/11/16 23:32 95 20 86/51 97 04/11/16 23:16 22 04/11/16 23:07 98.0 94 20 78/46 96 Room Air 04/11/16 22:45 96 20 75/45 04/11/16 22:25 110 20 85/55 98 Room Air 04/11/16 22:00 116 20 90/53 98 04/11/16 21:45 100.5 111 20 84/52 97 Room Air 04/11/16 21:20 101.2 110 20 82/67 98 Room Air I/O 04/11/16 04/11/16 04/11/16 04/12/16 04/12/16 04/12/16 07:00 15:00 23:00 07:00 15:00 23:00 Intake Total 2370 ml 4610 ml 2253 ml Output Total 900 ml 1650 ml Balance 2370 ml 3710 ml 603 ml Intake Oral 720 ml 360 ml 720 ml IV Total 1650 ml 4250 ml 1533 ml Output Urine Total 900 ml 1650 ml # Bowel Movements 0 0 Imaging Last Impressions Liver Ultrasound 04/12/16 0000 Signed Impressions: Service Date/Time: Tuesday, April 12, 2016 13:19 - CONCLUSION: 1. Pericholecystic fluid with dilatation of the intrahepatic ducts but no common duct dilatation. 2. Cholecystitis is not excluded. Intrahepatic duct dilatation without common duct dilatation. MRCP could be performed for further evaluation if clinically indicated. Brock Gross MD Abdomen/Pelvis CT 04/11/16 1520 Signed Impressions: Service Date/Time: Monday, April 11, 2016 15:52 - CONCLUSION: Sludge or debris in the gallbladder. Otherwise, appears unremarkable. I do not see obvious etiology for patient's pelvic pain. There is no fluid present. Abhijit Garcia MD FACR Laboratory Test 04/11/16 04/12/16 04/12/16 23:39 02:05 04:37 Nasal Screen MRSA (PCR) NEGATIVE Blood Gas Puncture Site RT BRACHIAL Blood Gas Patient Temperature 37.0 Blood Gas HCO3 18 mmol/L Blood Gas Base Excess -6.4 mmol/L Blood Gas Oxygen Saturation 96 % Arterial Blood pH 7.37 Arterial Blood Partial 32 mmHg Pressure CO2 Arterial Blood Partial 96 mmHg Pressure O2 Arterial Blood Oxygen Content 14.3 Vol % Arterial Blood 1.3 % Carboxyhemoglobin Arterial Blood Methemoglobin 0.7 % Blood Gas Hemoglobin 10.5 G/DL Oxygen Delivery Device ROOM AIR Blood Gas Inspired Oxygen 21 % Lactic Acid Level 0.8 mmol/L White Blood Count 3.5 TH/MM3 Red Blood Count 4.02 MIL/MM3 Hemoglobin 11.0 GM/DL Hematocrit 34.3 % Mean Corpuscular Volume 85.3 FL Mean Corpuscular Hemoglobin 27.3 PG Mean Corpuscular Hemoglobin 32.0 % Concent Red Cell Distribution Width 11.9 % Platelet Count 57 TH/MM3 Mean Platelet Volume 9.2 FL Neutrophils (%) (Auto) 87.6 % Lymphocytes (%) (Auto) 6.5 % Monocytes (%) (Auto) 4.3 % Eosinophils (%) (Auto) 1.5 % Basophils (%) (Auto) 0.1 % Neutrophils # (Auto) 3.0 TH/MM3 Lymphocytes # (Auto) 0.2 TH/MM3 Monocytes # (Auto) 0.2 TH/MM3 Eosinophils # (Auto) 0.1 TH/MM3 Basophils # (Auto) 0.0 TH/MM3 CBC Comment AUTO DIFF Differential Total Cells 100 Counted Neutrophils % (Manual) 66 % Band Neutrophils % 21 % Lymphocytes % 8 % Monocytes % 5 % Neutrophils # (Manual) 3.0 TH/MM3 Differential Comment FINAL DIFF MANUAL Platelet Estimate LOW Platelet Morphology Comment NORMAL Sodium Level 137 MEQ/L Potassium Level 3.6 MEQ/L Chloride Level 106 MEQ/L Carbon Dioxide Level 18.1 MEQ/L Anion Gap 13 MEQ/L Blood Urea Nitrogen 16 MG/DL Creatinine 0.68 MG/DL Estimat Glomerular Filtration 118 ML/MIN Rate Random Glucose 276 MG/DL Calcium Level 7.0 MG/DL Protein Corrected Calcium 7.7 MG/DL Phosphorus Level 1.0 MG/DL Total Bilirubin 0.7 MG/DL Aspartate Amino Transf 95 U/L (AST/SGOT) Alanine Aminotransferase 64 U/L (ALT/SGPT) Alkaline Phosphatase 50 U/L Total Protein 5.8 GM/DL Albumin 2.3 GM/DL Date/Time Procedure Status Source Growth 04/12/16 06:52 Genital Culture Received Genital Vaginal Pending 04/12/16 06:52 Cancelled Wound Other 04/11/16 20:10 Aerobic Blood Culture - Preliminary Resulted Blood Peripheral NO GROWTH IN 1 DAY 04/11/16 20:10 Anaerobic Blood Culture - Preliminary Resulted Blood Peripheral NO GROWTH IN 1 DAY 04/11/16 15:35 Urine Culture - Preliminary Resulted Urine Clean Catch Gram Negative Ariel Physical Examination HEENT: Pupils round and reactive to light; normocephalic; atraumatic; no jaundice. Throat is clear. NECK: Neck is supple, no JVD, no lymphadenopathy. CHEST: Chest is clear to auscultation and percussion. CARDIAC: Regular rate and rhythm with no murmur gallop or rubs. ABDOMEN: Soft, nondistended, some tenderness mostly localized to the right upper quadrant no rebound or guarding; no hepatosplenomegaly; bowel sounds are present in all four quadrants. EXTREMITIES: No clubbing, cyanosis, or edema. SKIN: Normal; no rash; no jaundice. RETAIL PLANNER: No focal deficits; alert and oriented times three. Assessment and Plan Plan Patient presenting with abdominal pain nausea and vomiting noted to have abnormal imaging on CT of the abdomen and ultrasound is also noted to have elevated liver function test most of her pain on physical examination is localized to the right upper quadrant At this point our focus is probably going to be the gallbladder I do agree with current supportive care Monitor labs We'll obtain an MRCP if negative then a hiatus scan Continue with antibiotics and hydration Kirby Miguel MD Apr 12, 2016 21:24
[2016-04-12] MEDS: ACETAMINOPHEN 325 MG TAB PO PRN (23:00)
[2016-04-13] VITALS (40 sets, daily range): BP systolic 82–117; BP diastolic 48–85; PULSE 86–118; RESP 17–47; TEMP 98.5–101.2; O2SAT 93–99
[2016-04-13] MEDS: ACETAMINOPHEN/HYDROcodone 325 MG/5 MG TAB PO PRN ×2 (03:10→15:38)
[2016-04-13] MEDS ORDERED: SODIUM CHLORID 0.9% 500 ML INJ 500 ML IV ONE (03:15)
[2016-04-13] MEDS ORDERED: CHLORHEXIDINE GLUCONATE 2 % 1 PACK (2 CLOTHS) TOP SCH (04:00)
[2016-04-13] MEDS: CHLORHEXIDINE GLUCONATE 2 % 1 PACK (2 CLOTHS) TOP SCH (04:00)
[2016-04-13 04:44] LABS: AUTOMATED NEUTROPHIL # 2.1 TH/MM3 (1.8-7.7); EOSINOPHIL % 0.1 % (0.0-4.0); LYMPHOCYTE # 0.6 TH/MM3 (1.0-4.8); MEAN CELL VOLUME 85.8 FL (80.0-100.0); MEAN CORPUSCULAR HEMOGLOBIN 28.2 PG (27.0-34.0); MEAN CORPUSCULAR HGB CONC 32.9 % (32.0-36.0); MONO % 9.8 % (0.0-8.0); NEUT % 70.1 % (16.0-70.0); PLATELET COUNT 53 TH/MM3 (150-450); RED BLOOD COUNT 3.84 MIL/MM3 (4.00-5.30); RED CELL DISTRIBUTION WIDTH 12.4 % (11.6-17.2)
[2016-04-13 04:49] LABS: HEMO FLAGS AUTO DIFF
[2016-04-13 04:50] LABS: POTASSIUM 3.2 MEQ/L (3.5-5.1)
[2016-04-13 05:15] LABS: BICARBONATE 21.2 MEQ/L (21.0-32.0); TOTAL BILIRUBIN ADULT 0.4 MG/DL (0.2-1.0)
[2016-04-13] MEDS: VANCOMYCIN INJ 750 MG in SODIUM CHLOR 0.9% 250 ML INJ 250 ML IV SCH (05:15)
[2016-04-13 05:21] LABS: CALCIUM-PROTEIN CORRECTED 7.5 MG/DL (8.5-10.1)
[2016-04-13] MEDS: POTASSIUM CHLOR 20 MEQ PREMIX 100 ML IV PRN ×2 (05:25→08:54)
[2016-04-13] MEDS: INSULIN ASPART SUPPLEMENTAL SCALE SQ SCH ×4 (05:27→18:00)
[2016-04-13 06:19] LABS: MAGNESIUM 1.9 MG/DL (1.5-2.5)
--- NOTE | 2016-04-13 06:27 | RADHPO ---
EXAM DATE/TIME: 04/13/2016 06:09 [facility] COMPARISON: No previous studies available for comparison. INDICATIONS : Respiratory disease MEDICAL HISTORY : Hypercholesterolemia. Nausea. Vomiting. Viral meningitis SURGICAL HISTORY : None. ENCOUNTER: Initial ACUITY: 2 days PAIN SCORE: Non-responsive. LOCATION: Right chest FINDINGS: Diffuse hazy bilateral parenchymal lung opacity is noted. Cardiomediastinal contours are satisfactory for technique and projection. CONCLUSION: Diffuse bilateral infiltrates Jorge Vicente MD on April 13, 2016 at 6:25 Board Certified Radiologist. This report was verified electronically.
[2016-04-13] MEDS: AZTREONAM INJ 2,000 MG in SODIUM CHLORIDE 0.9% INJ 100 ML IV SCH ×3 (06:28→18:05)
[2016-04-13] MEDS: SODIUM CHLOR 0.9% 1000 ML INJ 1,000 ML IV SCH ×2 (06:29→08:47)
[2016-04-13 06:45] LABS: SCAN/DIFF AUTO DIFF CONFIRMED
[2016-04-13 08:11] LABS: APTT (PATIENT) 30.8 SEC (24.3-30.1); PROTHROMBIN TIME - PATIENT 11.2 SEC (9.8-11.6)
[2016-04-13] MEDS: PANTOPRAZOLE SODIUM 40 MG VIAL IV SCH (08:53)
[2016-04-13] MEDS: SODIUM CHLORIDE 0.9% FLUSH 5 ML FLUSH IV FLUSH SCH ×2 (08:57→22:20)
[2016-04-13] MEDS: SODIUM CHLORIDE 0.9% FLUSH 5 ML FLUSH FLUSH SCH ×2 (08:57→22:30)
[2016-04-13] MEDS ORDERED: INFLUENZA VIRUS VACCINE (QUADRIVALENT) 0.5 ML SYR IM ONE (10:00)
[2016-04-13] MEDS ORDERED: PNEUMOCOCCAL POLYVALENT INJ 25 MCG/0.5 ML SYR IM ONE (10:00)
--- NOTE | 2016-04-13 10:15 | RADHPO ---
EXAM DATE/TIME: 04/13/2016 09:50 [facility] COMPARISON: US ABDOMEN - LIVER, April 12, 2016, 13:19. CT ABDOMEN & PELVIS W/O CONTRAST, April 11, 2016, 15: 52. INDICATIONS : Left sided abdominal pain. MEDICAL HISTORY : Diabetes mellitus type 2. viral meningitis, MRSA SURGICAL HISTORY : section. ENCOUNTER: Subsequent ACUITY: 3 day PAIN SCORE: 3/10 LOCATION: Left abdomen TECHNIQUE: Multiplanar, multisequence magnetic resonance imaging of the abdomen was performed. High-resolution 3D dataset was utilized to reconstruct maximum-intensity projection (MIP) images. FINDINGS: INTRAHEPATIC BILE DUCTS: Within normal limits. No significant anatomical variant is present. EXTRAHEPATIC BILE DUCTS: The common bile duct measures 4 mm No stone or filling defect is identified. GALLBLADDER: No gallstones are seen. The gallbladder is mildly distended. There is increased signal seen around th e gallbladder likely related to thickening and edema of the gallbladder wall. LIVER: There is diffuse fatty infiltration of the liver. No focal hepatic lesions are seen. PANCREAS: The main pancreatic duct is normal in size. There is no significant anatomical variant. Signal inte nsity is within normal limits. No mass is visualized on this non-contrast exam. OTHER: The remaining visualized structures demonstrate no acute abnormality on this non-contrast exam. CONCLUSION: 1. Thickened gallbladder wall with edema. Gallstones or biliary duct dilatation is not seen. 2. Fatty infiltration of the liver. Jorge Ross MD on April 13, 2016 at 10:06 Board Certified Radiologist. This report was verified electronically.
[2016-04-13] MEDS ORDERED: SODIUM CHLOR 0.9% 1000 ML INJ 1,000 ML IV ONE (11:15)
--- NOTE | 2016-04-13 11:23 | HHI.PR ---
Subjective Remarks 35-year-old female who originally presented to hospital admitted to critical care team for severe sepsis. Hospitalist was consulted to assume medical management. Patient presented with severe sepsis, hypotension requiring at least 6 L of IV fluids. Levophed for blood pressure management. Patient had lactic acid acidosis. Minutes of the ICU, started on IV vancomycin and Azactam. It was initially thought infection could be from acute pyelonephritis. CT scan did show sludge in the gallbladder. The patient did improve with fluid resuscitation. Blood pressure remained stable. Patient continues to have febrile illness. GI was consulted for further evaluation management. Further studies were performed to evaluate for cholecystitis. Ultrasound of the liver did indicate pericholecystic fluid with intrahepatic dilation. MRCP was performed which shows thickening gallbladder wall with edema. At the present time surgical consultation is being requested by GI physician. Likely patient will be transferred to [facility] for surgical intervention. At the present time patient still experiencing abdominal discomfort. She states that she does have dry mouth would like to drink something at this time. She states that whenever she eats she has severe abdominal pain. Objective Vitals Vital Signs Date Time Temp Pulse Resp B/P Pulse Ox O2 Delivery O2 Flow Rate FiO2 04/13/16 06:00 92 18 83/56 97 04/13/16 05:00 92 17 84/55 04/13/16 04:00 86 17 83/58 04/13/16 03:03 98.5 88 18 82/55 97 04/13/16 03:02 88 19 82/48 04/13/16 03:00 86 17 82/52 04/13/16 02:05 92 18 92/55 04/13/16 02:04 92 18 85/53 04/13/16 01:00 98 17 88/55 97 04/13/16 00:00 101.2 110 26 87/59 97 04/13/16 00:00 110 04/12/16 23:00 103.3 120 28 114/68 97 04/12/16 22:00 112 25 103/61 04/12/16 22:00 112 04/12/16 21:00 110 21 105/70 04/12/16 20:16 100.1 108 21 95/61 97 04/12/16 20:00 108 04/12/16 19:31 110 21 96/59 04/12/16 19:01 112 25 103/64 04/12/16 18:01 100.0 116 20 102/64 04/12/16 17:30 101.9 120 21 113/61 04/12/16 17:00 120 20 114/69 04/12/16 16:29 100.8 118 26 106/70 04/12/16 15:49 114 23 96/63 04/12/16 15:16 112 22 104/61 04/12/16 15:01 112 18 97/63 04/12/16 15:01 112 18 97/63 04/12/16 14:46 108 15 98/59 04/12/16 14:31 108 24 97/58 04/12/16 14:16 108 21 90/66 04/12/16 14:16 108 21 90/66 04/12/16 14:01 108 15 92/65 04/12/16 13:46 108 18 80/63 04/12/16 13:31 108 17 100/64 04/12/16 13:16 108 15 91/59 04/12/16 13:01 104 22 96/56 04/12/16 13:01 104 22 96/56 04/12/16 13:00 110 15 04/12/16 12:46 108 18 100/58 04/12/16 12:31 106 16 100/58 04/12/16 12:16 104 17 96/60 04/12/16 12:01 104 16 98/59 04/12/16 11:46 102 19 96/59 04/12/16 11:31 102 17 102/59 04/12/16 11:16 100 25 92/64 I/O 04/12/16 04/12/16 04/12/16 04/13/16 04/13/16 04/13/16 07:00 15:00 23:00 07:00 15:00 23:00 Intake Total 4610 ml 2253 ml 1440 ml 1680 ml Output Total 900 ml 1650 ml 1150 ml 650 ml Balance 3710 ml 603 ml 290 ml 1030 ml Intake Oral 360 ml 720 ml 540 ml IV Total 4250 ml 1533 ml 900 ml 1680 ml Output Urine Total 900 ml 1650 ml 1150 ml 650 ml # Bowel Movements 0 0 0 0 Result Diagram: 04/13/16 0430 04/13/16 0430 Imaging Last Impressions Cholangiopancreatography MRI 04/13/16 0000 Signed Impressions: Service Date/Time: Wednesday, April 13, 2016 09:50 - CONCLUSION: 1. Thickened gallbladder wall with edema. Gallstones or biliary duct dilatation is not seen. 2. Fatty infiltration of the liver. Jorge Ross MD Chest X-Ray 04/13/16 0000 Signed Impressions: Service Date/Time: Wednesday, April 13, 2016 06:09 - CONCLUSION: Diffuse bilateral infiltrates Jorge Vicente MD Liver Ultrasound 04/12/16 0000 Signed Impressions: Service Date/Time: Tuesday, April 12, 2016 13:19 - CONCLUSION: 1. Pericholecystic fluid with dilatation of the intrahepatic ducts but no common duct dilatation. 2. Cholecystitis is not excluded. Intrahepatic duct dilatation without common duct dilatation. MRCP could be performed for further evaluation if clinically indicated. Brock Gross MD Abdomen/Pelvis CT 04/11/16 1520 Signed Impressions: Service Date/Time: Monday, April 11, 2016 15:52 - CONCLUSION: Sludge or debris in the gallbladder. Otherwise, appears unremarkable. I do not see obvious etiology for patient's pelvic pain. There is no fluid present. Abhijit Garcia MD FACR Objective Remarks GENERAL: Well-developed, well-nourished, in no acute distress. alert and orientated HEENT: Head is normocephalic without any lesions or masses noted. Facial features are symmetric. Eyes: Extraocular muscles are intact. Conjunctivae were clear. NECK: Supple without any masses. Trachea midline no deviation. No JVD, CARDIAC: Regular rhythm, regular rate. S1/S2 are heard. No murmurs gallops or rubs. LUNGS: Clear to auscultation bilaterally. No wheeze, rhonchi or rales. No use of accessory muscles on inspiration or expiration. ABDOMEN: Soft, epigastric, mid abdominal tenderness. Nondistended. Bowel sounds heard in all 4 quadrants. No organomegaly or masses. Negative rebound, negative guarding EXTREMITIES: No edema, pulses are equal bilaterally. No cyanosis or clubbing NEUROLOGY: Mood and affect appear appropriate. Cranial nerves II through XII grossly intact. Moving all extremities, speech is clear Urinary Catheter: No Vascular Central Line Catheter: No A/P Assessment and Plan Septic shock, persistent Status post 6 L IV fluid boluses Status post Levophed which has been discontinued Continue normal saline but increased rate up to 150 cc an hour Give another liter of IV fluid bolus Continue antibiotics to include Azactam, vancomycin Cholecystitis: Patient presented with abdominal pain with elevated liver enzymes , CT scan does show sludge or debris in the gallbladder. Otherwise unremarkable Liver ultrasound shows pericholecystic fluid with dilatation of the intrahepatic ducts but with no common duct dilatation MRCP shows thickened gallbladder with edema, gallstone or biliary duct dilatation is not seen Life Science Research Assistant was consulted and at this time is recommending surgical consultation, in light of recent imaging studies Bacteremia Blood cultures with gram-negative scarlet Continue above antibiotics Consult infectious disease for further recommendations Urinary tract infection, likely pyelonephritis Urine culture does indicate Klebsiella pneumonia Patient is on Azactam Bilateral pulmonary infiltrates, community-acquired pneumonia Continue vancomycin, Azactam Duo nebs as needed O2 supplementation maintain O2 sats greater 92% Bandemia Secondary to sepsis Continue follow CBC Lactic acid acidosis, resolved Follow-up lactic acid levels are negative Prerenal azotemia, resolved Likely secondary to dehydration Continue monitor renal functions Thrombocytopenia Could be secondary to sepsis versus DIC Continue monitor platelet count Electrolyte abnormalities: Hypokalemia, hypophosphatemia, hypocalcemia Continue monitor and replete as needed Diabetes Accu-Cheks with sliding scale insulin 2000 ADA diet Tobacco use Patient counseled on cessation DVT prevention Sequential compression devices, avoid chemical prophylaxis secondary to thrombocytopenia Written by Alex Abbasi PA-C, acting as scribe for Dr. Turner on 04/13/16 at 1205. The documentation accurately reflects the work and decisions performed face-to- face by Dr. Turner on 04/13/16 at 1205. Medical Decision Making Impression and Plan The exam, history, and the medical decision-making described in the above note were completed with my assistance as the dictating practitioner. I attest that I had a [id number] encounter with the patient on the same day, and personally performed all of the history, exam, or medical decision making. I reviewed and agree with the plan. Patient feels better. Blood pressure still a bit low but the mean as appropriate. Care plan and discharge plans discussed with family at length as well as with nursing ICU team and Dr. Weems general surgery. Patient be transferred to the [facility] for evaluation of gallbladder disease Alex Abbasi Apr 13, 2016 11:23 Julieta Turner MD Apr 13, 2016 13:04
[2016-04-13] MEDS ORDERED: ePHEDrine/NS 50 MG/5 ML SYR IV ONE (12:00)
[2016-04-13] MEDS ORDERED: PROPOFOL 200 MG/20 ML AMP IV ONE (12:00)
[2016-04-13] MEDS ORDERED: ONDANSETRON HCL 4 MG/2 ML VIAL IV PUSH ONE (12:00)
[2016-04-13] MEDS ORDERED: PHENYLEPH/NS 1000 MCG/10 ML SYR IV ONE (12:00)
[2016-04-13] MEDS ORDERED: NEOSTIGMINE 3 MG/3 ML SYR IV ONE (12:00)
[2016-04-13] MEDS ORDERED: LACTATED RINGER'S 1000 ML INJ 2,000 ML IV ONE (12:00)
[2016-04-13] MEDS ORDERED: CALCIUM CHLORIDE INJ 1 GM in SODIUM CHLORIDE 0.9% INJ 100 ML IV ONE (13:00)
[2016-04-13] MEDS: ACETAMINOPHEN 325 MG TAB PO PRN (14:26)
--- NOTE | 2016-04-13 16:24 | PD.CONS ---
History of Present Illness Consult Requested By Primary Care Physician No Primary Care Physician Diagnoses: Past Family Social History Allergies: Coded Allergies: Amoxicillin (Verified Allergy, Severe, RASH, 04/11/16) Menthol (Verified Allergy, Intermediate, HIVES, BURNING, 04/11/16) Penicillin (Verified Allergy, Intermediate, RASH, 04/11/16) *MDRO Multi-Drug Resistant Organism (Verified Adverse Reaction, Unknown, MRSA, 04/12/16) MRSA (groin wound) - 09/18/15 Uncoded Allergies: icy hot (Adverse Reaction, Mild, Burning, 11/23/13) Burning skin Physical Exam Vital Signs Vital Signs Date Time Temp Pulse Resp B/P Pulse Ox O2 Delivery O2 Flow Rate FiO2 04/13/16 14:02 100.1 105 22 102/71 98 04/13/16 13:00 104 24 109/76 04/13/16 12:45 112 30 93/76 04/13/16 12:30 112 30 114/64 04/13/16 12:15 106 35 106/69 04/13/16 12:00 104 25 113/74 98 04/13/16 11:45 104 21 102/70 99 04/13/16 11:30 102 28 103/69 98 04/13/16 11:15 100 30 106/72 98 04/13/16 11:00 102 25 89/69 98 04/13/16 10:45 100 26 98/68 97 04/13/16 10:30 100 47 101/68 97 04/13/16 10:15 102 18 91/65 93 04/13/16 10:12 91/66 94 04/13/16 10:04 99.9 104/69 93 04/13/16 09:19 100 21 91/62 95 04/13/16 09:00 98 20 91/60 04/13/16 08:00 99 04/13/16 08:00 98 20 98/62 04/13/16 07:30 93 21 04/13/16 07:00 96 21 92/58 04/13/16 06:00 92 18 83/56 97 04/13/16 05:00 92 17 84/55 04/13/16 04:00 86 17 83/58 04/13/16 03:03 98.5 88 18 82/55 97 04/13/16 03:02 88 19 82/48 04/13/16 03:00 86 17 82/52 04/13/16 02:05 92 18 92/55 04/13/16 02:04 92 18 85/53 04/13/16 01:00 98 17 88/55 97 04/13/16 00:00 101.2 110 26 87/59 97 04/13/16 00:00 110 04/12/16 23:00 103.3 120 28 114/68 97 04/12/16 22:00 112 25 103/61 04/12/16 22:00 112 04/12/16 21:00 110 21 105/70 04/12/16 20:16 100.1 108 21 95/61 97 04/12/16 20:00 108 04/12/16 19:31 110 21 96/59 04/12/16 19:01 112 25 103/64 04/12/16 18:01 100.0 116 20 102/64 04/12/16 17:30 101.9 120 21 113/61 04/12/16 17:00 120 20 114/69 04/12/16 16:29 100.8 118 26 106/70 Physical Exam GENERAL: This is a well-nourished, well-developed patient, in no apparent distress. SKIN: No rashes, ecchymoses or lesions. Cool and dry. HEAD: Atraumatic. Normocephalic. No temporal or scalp tenderness. EYES: Pupils equal round and reactive. Extraocular motions intact. No scleral icterus. No injection or drainage. ENT: Nose without bleeding, purulent drainage or septal hematoma. Throat without erythema, tonsillar hypertrophy or exudate. Uvula midline. Airway patent. NECK: Trachea midline. No JVD or lymphadenopathy. Supple, nontender, no meningeal signs. CARDIOVASCULAR: Regular rate and rhythm without murmurs, gallops, or rubs. RESPIRATORY: Clear to auscultation. Breath sounds equal bilaterally. No wheezes , rales, or rhonchi. GASTROINTESTINAL: Abdomen soft, non-tender, nondistended. No hepato-splenomegaly , or palpable masses. No guarding. MUSCULOSKELETAL: Extremities without clubbing, cyanosis, or edema. No joint tenderness, effusion, or edema noted. No calf tenderness. Negative Homans sign bilaterally. NEUROLOGICAL: Awake and alert. Cranial nerves II through XII intact. Motor and sensory grossly within normal limits. Five out of 5 muscle strength in all muscle groups. Normal speech. Laboratory Laboratory Tests Test 04/13/16 04/13/16 04:30 07:15 White Blood Count 3.0 Red Blood Count 3.84 Hemoglobin 10.8 Hematocrit 33.0 Mean Corpuscular Volume 85.8 Mean Corpuscular Hemoglobin 28.2 Mean Corpuscular Hemoglobin 32.9 Concent Red Cell Distribution Width 12.4 Platelet Count 53 Mean Platelet Volume 8.9 Neutrophils (%) (Auto) 70.1 Lymphocytes (%) (Auto) 19.0 Monocytes (%) (Auto) 9.8 Eosinophils (%) (Auto) 0.1 Basophils (%) (Auto) 1.0 Neutrophils # (Auto) 2.1 Lymphocytes # (Auto) 0.6 Monocytes # (Auto) 0.3 Eosinophils # (Auto) 0.0 Basophils # (Auto) 0.0 CBC Comment AUTO DIFF Differential Comment AUTO DIFF CONFIRMED Sodium Level 140 Potassium Level 3.2 Chloride Level 109 Carbon Dioxide Level 21.2 Anion Gap 10 Blood Urea Nitrogen 6 Creatinine 0.40 Estimat Glomerular Filtration 217 Rate Random Glucose 146 Calcium Level 6.6 Protein Corrected Calcium 7.5 Phosphorus Level 2.1 Magnesium Level 1.9 Total Bilirubin 0.4 Aspartate Amino Transf 85 (AST/SGOT) Alanine Aminotransferase 84 (ALT/SGPT) Alkaline Phosphatase 68 Total Protein 5.3 Albumin 2.0 Prothrombin Time 11.2 Prothromb Time International 1.0 Ratio Activated Partial 30.8 Thromboplast Time Date/Time Procedure Status Source Growth 04/12/16 06:52 Genital Culture - Preliminary Resulted Genital Vaginal 04/12/16 06:52 Cancelled Wound Other 04/11/16 20:10 Aerobic Blood Culture - Preliminary Resulted Blood Peripheral NO GROWTH IN 2 DAYS 04/11/16 20:10 Anaerobic Blood Culture - Preliminary Resulted Blood Peripheral NO GROWTH IN 2 DAYS 04/11/16 15:35 Urine Culture - Final Complete Urine Clean Catch Klebsiella Pneumoniae Result Diagram: 04/13/16 0430 04/13/16 0430 Radha Owen Apr 13, 2016 16:23
[2016-04-13] MEDS ORDERED: PHARMACY ORDERED LAB XX ONE (17:45)
[2016-04-13] MEDS ORDERED: LIDOCAINE 1%/EPINEPHrine 1:100,000 SOLN 20 ML VIAL ONE (19:16)
[2016-04-13] MEDS ORDERED: BUPIVACAINE/EPINEPHRINE 0.5% 50 ML VIAL ONE (19:16)
--- NOTE | 2016-04-13 21:04 | HHI.PR ---
Immediate Post Op Note Procedure Date: Apr 13, 2016 Pre Op Diagnosis: acalculus cholecystitis, sepsis Post Op Diagnosis: same Surgeon: Benjamin Weems MD Agricultural Research Technician(s): see or sheet Procedure: lap gayle Findings: distended inflamed gallbladder Complications: none Specimen(s) removed: gallbladder Estimated blood loss: 20cc Anesthesia: General Drains: None IVF (900) Patient to: PACU Patient Condition: Good Benjamin Weems MD Apr 13, 2016 21:04
[2016-04-13] MEDS ORDERED: fentaNYL CITRATE 250 MCG/5 ML AMP ONE (21:41)
[2016-04-13] MEDS ORDERED: KETOROLAC TROMETHAMINE 60 MG/2 ML (IM) VIAL IM PRN (22:00)
[2016-04-13] MEDS ORDERED: DO NOT ADM ANY ANTICOAGULANT DRUGS XX PRN (22:15)
--- NOTE | 2016-04-13 22:23 | HHI.CCPN ---
Subjective Remarks/Hospital Course Hospital Course: Patient is a 35-year-old female with history of type 2 diabetes for the last 19 years, history of a left groin abscess with MRSA last year, who presented to the emergency department yesterday with symptoms of fever nausea vomiting and left lower quadrant abdominal pain. The patient noted poor oral intake since due to nausea and vomiting. The patient denies any diarrhea, denies any dysuria, frequency, or urgency, but did notice change of color in her urine. She does have a history of diabetes and takes metformin and sliding scale regular insulin. In the emergency department patient was found to have 103F sinus tachycardia 133 heart rate with within normal range blood pressure 113/60 with a map of 70 initially. Patient received IV ciprofloxacin, 3 L normal saline boluses and I have submitted to hospitalist service initially and received 1 dose of IV ciprofloxacin in the ED. Patient had white count of 5.3 with 30% bandemia. Platelet count was 92 initially later dropped to 57, second lactic acid was 2.9. Patient's blood pressure continued to deteriorate and remain persistently in mid 70s despite receiving a total of 6 L IV normal saline boluses. Critical care medicine was consulted and patient was started on Levophed at 8 mics per minute. I evaluated the patient in the ICU. She appears to be in mild-to- moderate distress, still remains on Levophed for septic shock. I have started her on IV vancomycin and IV Azactam. Most likely source of infection is acute pyelonephritis. CT abdomen pelvis shows gallbladder sludge no other acute findings Subjective: 04/13: transferred to hospitalist group today. doing well. [facility]. intra-operatively, received 900cc IVF for minimal EBL. did not require vasopressors intra- operatively, and per anesthesia report, tolerated the procedure with minimal change in hemodynamics. adequate uop during the anesthetic. I discussed her care with dr. Weems, and he would prefer her to be in the ICU overnight for close monitoring given that she was very recently in septic shock on vasopressors. I agree with this, and we will admit her overnight for close monitoring. Objective Vital Signs Date Time Temp Pulse Resp B/P Pulse Ox O2 Delivery O2 Flow Rate FiO2 04/13/16 19:00 Nasal Cannula 2 04/13/16 18:44 98.5 92 15 127/73 98 04/13/16 07:30 21 Intake and Output 04/12/16 04/12/16 04/13/16 08:00 16:00 00:00 Intake Total 3610 ml 2253 ml 1440 ml Output Total 900 ml 1650 ml 1150 ml Balance 2710 ml 603 ml 290 ml Result Diagram: 04/13/16 0430 04/13/16 0430 Other Results Microbiology Date/Time Procedure Status Source Growth 04/11/16 15:35 Urine Culture - Final Complete Urine Clean Catch Klebsiella Pneumoniae Imaging CT abdomen and pelvis shows gallbladder sludge Objective Remarks GENERAL: arousable, somnolent, recently under anesthesia.SKIN: Warm and dry. HEAD: Atraumatic. Normocephalic. EYES: Pupils equal and round. No scleral icterus. No injection or drainage. ENT: No nasal bleeding or discharge. moist mucous membranes NECK: Trachea midline. No JVD. CARDIOVASCULAR: tachycardic rate, regular rhythm. arterial line in place. BP 120s/70s. RESPIRATORY: No accessory muscle use. Clear to auscultation. Breath sounds equal bilaterally. GASTROINTESTINAL: Abdomen soft, appropriately tender. dressings dry. MUSCULOSKELETAL: No obvious deformities. No clubbing. No cyanosis. No edema. NEUROLOGICAL: somnolent, awakening from anesthesia, arousable. A/P Problem List: (1) Septic shock ICD Code: A41.9 Status: Acute (2) Pyelonephritis ICD Code: N12 Status: Acute (3) Lactic acidosis ICD Code: E87.2 Status: Acute (4) Hyperglycemia ICD Code: R73.9 Status: Acute (5) Type 2 diabetes mellitus ICD Code: E11.9 Status: Acute Assessment and Plan NEURO: -As needed Tylenol and [place] for pain control -prn dilaudid. RESP: -Nasal cannula oxygen if needed, DuoNeb every 6 hours when necessary CV: Septic shock -resolved. Lactic acidosis -resolved. -SLIV. -not requiring vasopressors. -may need gentle fluid hydration overnight if hypotensive. currently uop adequate. GI: -NPO for now. will likely slowly advance diet in the AM. may have a few ice chips tonight for comfort. -IV Protonix for GI prophylaxis -04/13 Dr. Dank zaman : Dehydration Acute kidney insufficiency- resolved. -Monitor renal function closely. Orozco catheter. -gentle fluid hydration ID: Septic shock Acute pyelonephritis Lactic acidosis -continue abx HEME: Thrombocytopenia -Monitor CBC, CMP, coags -Thrombocytopenia is most likely secondary to DIC from severe sepsis ENDO: Hyperglycemia Type 2 diabetes -Sliding-scale insulin, add Levemir 10 units every 12 -Electrolyte replacement per protocol PROPH: -Bilateral lower extremity SCDs. Avoid chemical DVT prophylaxis because of thrombocytopenia LINES: -Utilize peripheral IVs, not on vasopressors currently. Dispo: will admit to the ICU for close monitoring. I believe she is safe to continue to be managed by the hospitalist team. We will monitor her overnight and continue to be peripherally aware of the patient while she remains in the ICU. Sawyer Conklin MD Apr 13, 2016 22:23
[2016-04-13] MEDS: MORPHINE SULFATE 4 MG/ML INJ IV PRN (22:30)
[2016-04-13] MEDS ORDERED: KETOROLAC TROMETHAMINE 30 MG/ML (IVP) VIAL IV PUSH ONE (23:45)
[2016-04-14] VITALS (13 sets, daily range): BP systolic 94–126; BP diastolic 54–74; PULSE 89–113; RESP 17–23; TEMP 98.4–101.7; O2SAT 92–96
[2016-04-14] MEDS: AZTREONAM INJ 2,000 MG in SODIUM CHLORIDE 0.9% INJ 100 ML IV SCH ×4 (00:39→17:25)
[2016-04-14] MEDS: SODIUM CHLOR 0.9% 1000 ML INJ 1,000 ML IV SCH ×4 (01:11→20:37)
[2016-04-14] MEDS: ONDANSETRON HCL 4 MG/2 ML VIAL IVP PRN (01:39)
[2016-04-14] MEDS: MORPHINE SULFATE 4 MG/ML INJ IV PRN ×4 (01:39→21:44)
[2016-04-14] MEDS: CHLORHEXIDINE GLUCONATE 2 % 1 PACK (2 CLOTHS) TOP SCH (04:00)
[2016-04-14 05:26] LABS: MEAN CELL VOLUME 84.8 FL (80.0-100.0); MEAN CORPUSCULAR HEMOGLOBIN 28.6 PG (27.0-34.0); MEAN CORPUSCULAR HGB CONC 33.7 % (32.0-36.0); PLATELET COUNT 98 TH/MM3 (150-450); RED BLOOD COUNT 3.42 MIL/MM3 (4.00-5.30); RED CELL DISTRIBUTION WIDTH 13.2 % (11.6-17.2); WHITE BLOOD COUNT 5.5 TH/MM3 (4.0-11.0)
[2016-04-14 05:30] LABS: HEMO FLAGS AUTO DIFF
[2016-04-14 05:53] LABS: BICARBONATE 16.9 MEQ/L (21.0-32.0); CALCIUM-PROTEIN CORRECTED 8.6 MG/DL (8.5-10.1); MAGNESIUM 1.8 MG/DL (1.5-2.5); POTASSIUM 3.8 MEQ/L (3.5-5.1); TOTAL BILIRUBIN ADULT 0.2 MG/DL (0.2-1.0)
[2016-04-14] MEDS: INSULIN ASPART SUPPLEMENTAL SCALE SQ SCH ×4 (06:00→17:11)
[2016-04-14 07:14] LABS: BANDS 20 % (0-6); NEUTROPHIL # MANUAL DIFF 4.3 TH/MM3 (1.8-7.7); PLATELET ESTIMATE SMEAR LOW (NORMAL); PLATELET MORPHOLOGY NORMAL (NORMAL); POLYS (SEG NEUTROPHILS) 59 % (16-70); WBC DIFF SAMPLE 100
[2016-04-14 07:15] LABS: SCAN/DIFF FINAL DIFF MANUAL
[2016-04-14] MEDS: VANCOMYCIN INJ 750 MG in SODIUM CHLOR 0.9% 250 ML INJ 250 ML IV SCH (07:46)
[2016-04-14] MEDS: SODIUM CHLORIDE 0.9% FLUSH 5 ML FLUSH IV FLUSH SCH ×2 (08:37→20:36)
[2016-04-14] MEDS: PANTOPRAZOLE SODIUM 40 MG VIAL IV SCH (08:37)
[2016-04-14] MEDS: SODIUM CHLORIDE 0.9% FLUSH 5 ML FLUSH FLUSH SCH ×2 (08:37→20:36)
[2016-04-14] MEDS: SODIUM PHOSPHATE INJ 30 MMOL in SODIUM CHLOR 0.9% 250 ML INJ 240 ML IV PRN (08:58)
[2016-04-14] MEDS ORDERED: VANCOMYCIN 1,000 MG/NS 250 ML IV SCH ×2 (10:00)
--- NOTE | 2016-04-14 10:15 | HHI.PR ---
Subjective Remarks Follow-up septic shock/acute pyelonephritis/cholecystectomy 04/14/16-patient seen and examined; reports some abdominal pain otherwise stable and denies any nausea and vomiting. Currently afebrile. Objective Vitals Vital Signs Date Time Temp Pulse Resp B/P Pulse Ox O2 Delivery O2 Flow Rate FiO2 04/14/16 08:00 98.9 102 23 124/64 92 04/14/16 08:00 101 04/14/16 07:31 94 21 04/14/16 04:00 98.4 92 17 114/64 95 04/14/16 02:00 89 04/14/16 00:15 94 Nasal Cannula 2.00 04/14/16 00:00 100 04/14/16 00:00 98.5 100 19 94/54 94 04/13/16 23:15 99.9 95 16 104/62 96 Nasal Cannula 2 116/62 04/13/16 23:00 98 16 108/66 95 Nasal Cannula 2 123/64 04/13/16 22:45 95 16 108/68 96 Nasal Cannula 2 131/63 04/13/16 22:30 99.3 96 16 111/73 95 Nasal Cannula 2 132/63 04/13/16 22:15 95 16 112/69 95 Nasal Cannula 2 140/66 04/13/16 22:00 91 16 111/70 95 Nasal Cannula 2 137/64 04/13/16 21:45 108 16 105/65 95 Nasal Cannula 2 133/62 04/13/16 21:30 91 14 125/66 97 Nasal Cannula 3 131/60 04/13/16 21:25 99.2 91 14 128/47 97 Nasal Cannula 3 127/53 04/13/16 19:00 Nasal Cannula 2 04/13/16 18:44 98.5 92 15 127/73 98 04/13/16 18:00 92 21 93/56 97 04/13/16 17:40 90 22 96/63 98 04/13/16 17:15 88 21 94/62 97 04/13/16 17:05 99.1 88 20 87/54 04/13/16 16:44 99 22 86/54 04/13/16 16:30 102 23 87/52 04/13/16 16:00 118 35 95/53 04/13/16 15:30 101.0 116 22 110/65 04/13/16 15:00 108 25 116/85 04/13/16 14:30 112 30 117/83 04/13/16 14:02 100.1 105 22 102/71 98 04/13/16 13:00 104 24 109/76 04/13/16 12:45 112 30 93/76 04/13/16 12:30 112 30 114/64 04/13/16 12:15 106 35 106/69 04/13/16 12:00 104 25 113/74 98 04/13/16 11:45 104 21 102/70 99 04/13/16 11:30 102 28 103/69 98 04/13/16 11:15 100 30 106/72 98 04/13/16 11:00 102 25 89/69 98 04/13/16 10:45 100 26 98/68 97 04/13/16 10:30 100 47 101/68 97 04/13/16 10:15 102 18 91/65 93 04/13/16 10:12 91/66 94 I/O 04/13/16 04/13/16 04/13/16 04/14/16 04/14/16 04/14/16 07:00 15:00 23:00 07:00 15:00 23:00 Intake Total 1680 ml 1235 ml 1500 ml 1219 ml Output Total 650 ml 1025 ml 775 ml 600 ml Balance 1030 ml 210 ml 725 ml 619 ml Intake Oral 120 ml 0 ml 100 ml IV Total 1680 ml 1115 ml 500 ml 1119 ml Other 1000 ml Output Urine Total 650 ml 1025 ml 50 ml 600 ml Estimated Blood Loss 75 ml Other 650 ml # Bowel Movements 0 0 Result Diagram: 04/14/16 0450 04/14/16 0450 Imaging Last Impressions Cholangiopancreatography MRI 04/13/16 0000 Signed Impressions: Service Date/Time: Wednesday, April 13, 2016 09:50 - CONCLUSION: 1. Thickened gallbladder wall with edema. Gallstones or biliary duct dilatation is not seen. 2. Fatty infiltration of the liver. Jorge Ross MD Chest X-Ray 04/13/16 0000 Signed Impressions: Service Date/Time: Wednesday, April 13, 2016 06:09 - CONCLUSION: Diffuse bilateral infiltrates Jorge Vicente MD Liver Ultrasound 04/12/16 0000 Signed Impressions: Service Date/Time: Tuesday, April 12, 2016 13:19 - CONCLUSION: 1. Pericholecystic fluid with dilatation of the intrahepatic ducts but no common duct dilatation. 2. Cholecystitis is not excluded. Intrahepatic duct dilatation without common duct dilatation. MRCP could be performed for further evaluation if clinically indicated. Brock Gross MD Abdomen/Pelvis CT 04/11/16 1520 Signed Impressions: Service Date/Time: Monday, April 11, 2016 15:52 - CONCLUSION: Sludge or debris in the gallbladder. Otherwise, appears unremarkable. I do not see obvious etiology for patient's pelvic pain. There is no fluid present. Abhijit Garcia MD FACR Objective Remarks GENERAL: NAD SKIN: Warm and dry. HEAD: Normocephalic. EYES: No scleral icterus. No injection or drainage. NECK: Supple, trachea midline. No JVD or lymphadenopathy. CARDIOVASCULAR: Regular rate and rhythm without murmurs, gallops, or rubs. RESPIRATORY: Breath sounds equal bilaterally. No accessory muscle use. GASTROINTESTINAL: Abdomen soft, mildly tender, nondistended. inc c/d/i MUSCULOSKELETAL: No cyanosis, or edema. BACK: Nontender without obvious deformity. No CVA tenderness. A/P Problem List: (1) Septic shock ICD Code: A41.9 Status: Resolved (2) Pyelonephritis ICD Code: N12 Status: Acute (3) Lactic acidosis ICD Code: E87.2 Status: Resolved (4) Thrombocytopenia ICD Code: D69.6 Status: Acute (5) Hyperglycemia ICD Code: R73.9 Status: Acute (6) Dehydration ICD Code: E86.0 Status: Acute (7) Abdominal pain ICD Code: R10.9 Status: Acute (8) Poorly controlled diabetes mellitus ICD Code: E11.65 Status: Chronic (9) Type 2 diabetes mellitus ICD Code: E11.9 Status: Chronic Assessment and Plan 35-year-old female with Septic shock -resolved. Lactic acidosis -resolved. Cholecystitis: Status post lap cholecystectomy. Management per Gen. surgery. Continue current postop care Dehydration Acute kidney insufficiency- resolved. -Monitor renal function closely. Orozco catheter however discontinue -gentle fluid hydration Septic shock-resolved Acute pyelonephritis-Klebsiella pneumonia; currently on Azactam and vancomycin per infectious disease specialist Bacteremia?: 1 positive blood culture, repeat blood culture 2 today 04/14/16. Continue current antibiotics. Infectious disease specialist consultation Lactic acidosis-resolved Transaminitis-LFTs trending down, hepatitis profile negative. Liver ultrasound noted. MRCP with fatty liver. Thrombocytopenia -Monitor CBC, CMP, coags -Thrombocytopenia is most likely secondary to DIC from severe sepsis -Appreciate input from gastroenterology Hyperglycemia Type 2 diabetes -Sliding-scale insulin, Levemir 10 units every 12 PROPH: -Bilateral lower extremity SCDs. Avoid chemical DVT prophylaxis because of thrombocytopenia Transfer to [facility] Thony Brian MD Apr 14, 2016 10:15
--- NOTE | 2016-04-14 10:17 | MB ---
cc: DESHAWN LOFTON MD DATE OF CONSULTATION: 04/13/2016 REASON FOR CONSULTATION Abdominal pain, rule out cholecystitis. HISTORY OF PRESENT ILLNESS The patient is a 35-year-old female who presented initially with complaints of bilateral upper quadrant abdominal pain. She stated the initial pain was a 10/10 and continued to get worse. Her significant complaint was left-sided 10/10 pain, sharp, constant, some radiation to the right side, and had gone on for approximately 24 hours. The patient came to the emergency department for further evaluation with findings of hypotension and concern for septic shock. She did have further work-up, was placed on Levophed and given 6 liters of fluid with some improvement. She was admitted to the ICU. CT scan shows gallbladder sludge and concern, otherwise no acute abnormality. Ultrasound showed a significantly thickened gallbladder wall without evidence of stones or bile duct thickening. A MRCP was done which confirmed edema with thickened gallbladder wall and a patent common bile duct. She also had elevated LFTs and alkaline phosphatase. Surgery was consulted for further evaluation. She also had findings of positive UTI. She was placed on antibiotics and continued resuscitation. Upon my exam the patient is in the critical care unit. Her blood pressure has improved and she is currently off Levophed. She states she has continued abdominal pain on both the left and right side. On palpation she is tender both on the left and had some right-sided tenderness without significant rebound. She also complains of significant nausea and vomiting with decreased p.o. intake. She has been having bowel movements. PAST MEDICAL HISTORY 1. Diabetes. 2. Hypercholesteremia. PAST SURGICAL HISTORY C-sections. SOCIAL HISTORY Occasional ETOH. Denies smoking and IVDA. ALLERGIES 1. AMOXICILLIN. 2. MENTHOL. 3. PENICILLIN. MEDICATIONS See EMR. FAMILY HISTORY Positive for mother with diabetes. Father healthy. REVIEW OF SYSTEMS GENERAL: Complains of fevers and headaches. HEENT: Complains of congestion. Denies eye pain. CARDIOVASCULAR: Complains of tachycardia. Denies chest pain. RESPIRATORY: Denies cough or wheeze. GI: Complains of nausea, vomiting, abdominal pain. Denies diarrhea. : Denies dysuria, hematuria. MUSCULOSKELETAL: Denies myalgias, arthralgias. INTEGUMENT: Denies rash or lesions. : Denies dysuria, hematuria. PSYCHIATRIC: Denies change in mood or altered sensorium. ENDOCRINE: Denies polyuria. Positive diabetes. PHYSICAL EXAMINATION GENERAL: Patient in no acute distress. VITAL SIGNS: Temperature 99.9, pulse 95, blood pressure 94/54. 96% on two liters. HEENT: No scleral icterus. Moist mucous membranes. NECK: Supple. Trachea midline. HEART: S1, S2, tachycardia. No murmur. LUNGS: Bilateral expansion. No wheeze. ABDOMEN: Positive tenderness to palpation bilateral upper quadrants. No flank tenderness. No rebound. Soft. EXTREMITIES: Warm, well-perfused. 2+ pulses in all extremities. NEUROLOGIC: GCS 15. Alert and oriented x4. No numbness. PSYCHIATRIC: Good mood and good insight and judgment. SKIN: No obvious skin lesions or masses. LABORATORY/DIAGNOSTIC DATA WBC 3, hemoglobin 10.8, hematocrit 33, platelets 53. Sodium 140, potassium 3.2, chloride 109, BUN 6, creatinine 0.4, glucose 146, corrected calcium 7.5, AST 85, ALT 84, alkaline phosphatase 68, total bilirubin 0.4. INR 1. CT of the abdomen and pelvis reviewed by myself. Sludge and concern for debris in gallbladder on non IV contrasted CT. Ultrasound: Pericholecystic fluid with dilation of the hepatic duct. No common duct dilation. Thickened gallbladder wall. MRCP: 8 mm gallbladder wall. Bile duct within normal limits. ASSESSMENT A 35-year-old patient with a [id number] of diabetes, presents with UTI and concern for acalculous cholecystitis. After full radiologic and clinical work-up patient with above-named complaints. The patient appears to be in sepsis which she is improving on IV antibiotics and Infectious Disease has been consulted. The patient is currently in the ICU and has improved from a resuscitative standpoint. She does have radiologic evidence showing acalculous cholecystitis with a thickened gallbladder wall along with elevated transaminases. Clinically she does have some signs of right upper quadrant pain and tenderness to palpation. At this point I discussed fully in regards to potential options of continuing to observe this for further signs of worsening right-sided abdominal pain and potential nonoperative management with antibiotics and IV fluids versus operative management and potential diagnostic laparoscopy with laparoscopic cholecystectomy if findings were positive intraoperatively. At this point the patient with boyfriend at bedside agreed to proceed with operative intervention including a diagnostic laparoscopy and possible cholecystectomy. This was discussed with the patient in detail regarding risks, benefits and the alternatives to this operation. She stated full understanding, agreed and would like to proceed. MD SWATHI Poole/SANAM /9:29 AM /9:55 AM
--- NOTE | 2016-04-14 11:13 | HHI.PR ---
Subjective Subjective Notes Minimal pain at incision sites Objective Vitals/I&O Vital Signs Date Time Temp Pulse Resp B/P Pulse Ox O2 Delivery O2 Flow Rate FiO2 04/14/16 10:26 20 04/14/16 10:00 106 04/14/16 08:00 98.9 124/64 92 04/14/16 07:31 21 04/14/16 00:15 Nasal Cannula 2.00 Labs Laboratory Tests Test 04/13/16 04/14/16 19:22 04:50 Vancomycin Level Trough 2.8 White Blood Count 5.5 Red Blood Count 3.42 Hemoglobin 9.8 Hematocrit 29.0 Mean Corpuscular Volume 84.8 Mean Corpuscular Hemoglobin 28.6 Mean Corpuscular Hemoglobin 33.7 Concent Red Cell Distribution Width 13.2 Platelet Count 98 Mean Platelet Volume 8.4 Neutrophils (%) (Auto) Lymphocytes (%) (Auto) Monocytes (%) (Auto) Eosinophils (%) (Auto) Basophils (%) (Auto) Neutrophils # (Auto) Lymphocytes # (Auto) Monocytes # (Auto) Eosinophils # (Auto) Basophils # (Auto) CBC Comment AUTO DIFF Differential Total Cells 100 Counted Neutrophils % (Manual) 59 Band Neutrophils % 20 Lymphocytes % 17 Monocytes % 4 Neutrophils # (Manual) 4.3 Differential Comment FINAL DIFF MANUAL Platelet Estimate LOW Platelet Morphology Comment NORMAL Sodium Level 139 Potassium Level 3.8 Chloride Level 109 Carbon Dioxide Level 16.9 Anion Gap 13 Blood Urea Nitrogen 6 Creatinine 0.31 Estimat Glomerular Filtration 292 Rate Random Glucose 131 Calcium Level 7.3 Protein Corrected Calcium 8.6 Phosphorus Level 2.0 Magnesium Level 1.8 Total Bilirubin 0.2 Aspartate Amino Transf 71 (AST/SGOT) Alanine Aminotransferase 81 (ALT/SGPT) Alkaline Phosphatase 69 Total Protein 4.8 Albumin 1.8 Date/Time Procedure Status Source Growth 04/12/16 06:52 Genital Culture - Preliminary Resulted Genital Vaginal 04/12/16 06:52 Cancelled Wound Other 04/11/16 20:10 Aerobic Blood Culture - Preliminary Resulted Blood Peripheral NO GROWTH IN 3 DAYS 04/11/16 20:10 Anaerobic Blood Culture - Preliminary Resulted Blood Peripheral NO GROWTH IN 3 DAYS 04/11/16 15:35 Urine Culture - Final Complete Urine Clean Catch Klebsiella Pneumoniae Cardiovascular: Regular Lungs: Clear Abdomen: Other (lap sites c/d/i), Post-op tenderness Extremities: No edema A/P Assessment and Plan 35 year old female POD1 lap gayle -Advance diet as tolerated -OOB and mobilize -Okay to transfer to the floor from GS standpoint Attending Statement patient seen at bedside doing well ok to transfer to floor Attestation The exam, history, and the medical decision-making described in the above note were completed with the assistance of the mid-level provider. I reviewed and agree with the findings presented. I attest that I had a [id number] encounter with the patient on the same day, and personally performed and documented my assessment and findings in the medical record. Charley Willett Apr 14, 2016 11:13 Benjamin Weems MD Apr 24, 2016 21:14
[2016-04-14] MEDS: VANCOMYCIN 1,000 MG/NS 250 ML IV SCH ×4 (14:00→20:37)
[2016-04-14] MEDS: ACETAMINOPHEN 325 MG TAB PO PRN (17:25)
[2016-04-15] VITALS (9 sets, daily range): BP systolic 104–126; BP diastolic 55–77; PULSE 90–100; RESP 17–20; TEMP 98.2–99.6; O2SAT 7–98
[2016-04-15] MEDS: AZTREONAM INJ 2,000 MG in SODIUM CHLORIDE 0.9% INJ 100 ML IV SCH ×4 (00:13→17:08)
[2016-04-15] MEDS: ACETAMINOPHEN 325 MG TAB PO PRN (00:13)
[2016-04-15] MEDS: INSULIN ASPART SUPPLEMENTAL SCALE SQ SCH ×5 (00:24→22:36)
[2016-04-15] MEDS: CHLORHEXIDINE GLUCONATE 2 % 1 PACK (2 CLOTHS) TOP SCH (04:00)
[2016-04-15] MEDS: SODIUM CHLOR 0.9% 1000 ML INJ 1,000 ML IV SCH ×2 (04:20→10:31)
[2016-04-15] MEDS: ONDANSETRON HCL 4 MG/2 ML VIAL IVP PRN ×2 (04:35→17:14)
[2016-04-15] MEDS: MORPHINE SULFATE 4 MG/ML INJ IV PRN ×2 (04:35→22:33)
[2016-04-15] MEDS: VANCOMYCIN 1,000 MG/NS 250 ML IV SCH ×4 (04:39→14:00)
[2016-04-15 04:59] LABS: HEMATOCRIT 28.5 % (35.0-46.0); MEAN CELL VOLUME 83.8 FL (80.0-100.0); MEAN CORPUSCULAR HEMOGLOBIN 28.2 PG (27.0-34.0); MEAN CORPUSCULAR HGB CONC 33.7 % (32.0-36.0); PLATELET COUNT 164 TH/MM3 (150-450); RED BLOOD COUNT 3.41 MIL/MM3 (4.00-5.30); RED CELL DISTRIBUTION WIDTH 13.1 % (11.6-17.2); WHITE BLOOD COUNT 5.6 TH/MM3 (4.0-11.0)
[2016-04-15 05:01] LABS: HEMO FLAGS AUTO DIFF
[2016-04-15 05:25] LABS: ALT (GPT) 76 U/L (10-53); ANION GAP 9 MEQ/L (5-15); AST (GOT) 50 U/L (15-37); BICARBONATE 21.3 MEQ/L (21.0-32.0); BLOOD UREA NITROGEN 5 MG/DL (7-18); CHLORIDE 108 MEQ/L (98-107); GLOMERULAR FILTRATION RATE 224 ML/MIN (>89); POTASSIUM 3.1 MEQ/L (3.5-5.1); SODIUM (NA) 138 MEQ/L (136-145)
[2016-04-15 05:27] LABS: ALKALINE PHOSPHATASE 66 U/L (45-117); TOTAL BILIRUBIN ADULT 0.3 MG/DL (0.2-1.0)
[2016-04-15 09:00] LABS: BANDS 3 % (0-6); MYELOCYTES 1 % (0-0); NEUTROPHIL # MANUAL DIFF 3.6 TH/MM3 (1.8-7.7); PLASMA CELLS 3 % (0-0); POLYS (SEG NEUTROPHILS) 61 % (16-70); WBC DIFF SAMPLE 100
[2016-04-15] MEDS: SODIUM CHLORIDE 0.9% FLUSH 5 ML FLUSH FLUSH SCH ×2 (09:00→19:44)
[2016-04-15] MEDS: SODIUM CHLORIDE 0.9% FLUSH 5 ML FLUSH IV FLUSH SCH ×2 (09:00→19:44)
[2016-04-15 09:04] LABS: PLATELET ESTIMATE SMEAR NORMAL (NORMAL); PLATELET MORPHOLOGY NORMAL (NORMAL); SCAN/DIFF FINAL DIFF MANUAL
[2016-04-15] MEDS: PANTOPRAZOLE SOD 40 MG DELAYED RELEASE TAB PO SCH (09:10)
--- NOTE | 2016-04-15 11:09 | HHI.PR ---
Subjective Subjective Notes Just out of shower Pain better today Objective Vitals/I&O Vital Signs Date Time Temp Pulse Resp B/P Pulse Ox O2 Delivery O2 Flow Rate FiO2 04/15/16 08:38 96 21 04/15/16 07:52 98.2 90 20 120/71 04/14/16 00:15 Nasal Cannula 2.00 Labs Laboratory Tests Test 04/15/16 03:48 White Blood Count 5.6 Red Blood Count 3.41 Hemoglobin 9.6 Hematocrit 28.5 Mean Corpuscular Volume 83.8 Mean Corpuscular Hemoglobin 28.2 Mean Corpuscular Hemoglobin 33.7 Concent Red Cell Distribution Width 13.1 Platelet Count 164 Mean Platelet Volume 8.2 Neutrophils (%) (Auto) Lymphocytes (%) (Auto) Monocytes (%) (Auto) Eosinophils (%) (Auto) Basophils (%) (Auto) Neutrophils # (Auto) Lymphocytes # (Auto) Monocytes # (Auto) Eosinophils # (Auto) Basophils # (Auto) CBC Comment AUTO DIFF Differential Total Cells 100 Counted Neutrophils % (Manual) 61 Band Neutrophils % 3 Lymphocytes % 24 Monocytes % 8 Neutrophils # (Manual) 3.6 Myelocytes 1 Differential Comment FINAL DIFF MANUAL Plasma Cells 3 Platelet Estimate NORMAL Platelet Morphology Comment NORMAL Red Cell Morphology Comment NORMAL Sodium Level 138 Potassium Level 3.1 Chloride Level 108 Carbon Dioxide Level 21.3 Anion Gap 9 Blood Urea Nitrogen 5 Creatinine 0.39 Estimat Glomerular Filtration 224 Rate Random Glucose 183 Calcium Level 7.5 Total Bilirubin 0.3 Aspartate Amino Transf 50 (AST/SGOT) Alanine Aminotransferase 76 (ALT/SGPT) Alkaline Phosphatase 66 Total Protein 5.0 Albumin 1.9 Date/Time Procedure Status Source Growth 04/14/16 11:50 Aerobic Blood Culture Received Blood Peripheral Pending 04/14/16 11:50 Anaerobic Blood Culture Received Blood Peripheral Pending 04/12/16 06:52 Genital Culture - Preliminary Resulted Genital Vaginal Soraida Albicans 04/12/16 06:52 Cancelled Wound Other 04/11/16 20:10 Aerobic Blood Culture - Preliminary Resulted Blood Peripheral NO GROWTH IN 4 DAYS 04/11/16 20:10 Anaerobic Blood Culture - Preliminary Resulted Blood Peripheral NO GROWTH IN 4 DAYS 04/11/16 20:00 Aerobic Blood Culture - Final Resulted Blood Peripheral Klebsiella Pneumoniae 04/11/16 20:00 Anaerobic Blood Culture - Preliminary Resulted Blood Peripheral NO GROWTH IN 4 DAYS 1/15/17 15:35 Urine Culture - Final Complete Urine Clean Catch Klebsiella Pneumoniae Cardiovascular: Regular Lungs: Clear Abdomen: Other (lap sites c/d/i), Post-op tenderness Extremities: No edema A/P Assessment and Plan 35 year old female POD2 lap gayle -Tolerating regular diet -OOB and mobilize -GS will sign off -Follow up in office next week with Dr. Weems Attending Statement patient seen at bedside pt feeling better Attestation The exam, history, and the medical decision-making described in the above note were completed with the assistance of the mid-level provider. I reviewed and agree with the findings presented. I attest that I had a [id number] encounter with the patient on the same day, and personally performed and documented my assessment and findings in the medical record. Charley Willett Apr 15, 2016 11:08 Benjamin Weems MD Apr 24, 2016 21:20
--- NOTE | 2016-04-15 11:18 | HHI.PR ---
Subjective Remarks Follow-up septic shock/acute pyelonephritis/cholecystectomy 04/14/16-patient seen and examined; reports some abdominal pain otherwise stable and denies any nausea and vomiting. Currently afebrile. 04/15/16-patient seen and examined; still with some abdominal pain but stable. Afebrile Objective Vitals Vital Signs Date Time Temp Pulse Resp B/P Pulse Ox O2 Delivery O2 Flow Rate FiO2 04/15/16 08:38 96 21 04/15/16 07:52 98.2 90 20 120/71 95 04/15/16 04:00 98.6 94 18 112/69 96 04/15/16 00:00 99.6 96 18 104/55 96 04/14/16 20:08 93 04/14/16 20:00 98.6 111 18 104/59 95 04/14/16 18:29 98.8 04/14/16 17:20 101.7 04/14/16 16:00 100.0 113 17 126/74 96 04/14/16 12:00 102 04/14/16 12:00 98.4 102 23 113/67 95 I/O 04/14/16 04/14/16 04/14/16 04/15/16 04/15/16 04/15/16 07:00 15:00 23:00 07:00 15:00 23:00 Intake Total 1219 ml 240 ml 1217 ml 1489 ml Output Total 600 ml 625 ml 900 ml Balance 619 ml -385 ml 1217 ml 589 ml Intake Oral 100 ml 240 ml 360 ml 240 ml IV Total 1119 ml 857 ml 1249 ml Output Urine Total 600 ml 625 ml 900 ml # Voids 2 # Bowel Movements 0 0 Result Diagram: 04/15/16 0348 04/15/16 0348 Imaging Last Impressions Cholangiopancreatography MRI 04/13/16 0000 Signed Impressions: Service Date/Time: Wednesday, April 13, 2016 09:50 - CONCLUSION: 1. Thickened gallbladder wall with edema. Gallstones or biliary duct dilatation is not seen. 2. Fatty infiltration of the liver. Jorge Ross MD Chest X-Ray 04/13/16 0000 Signed Impressions: Service Date/Time: Wednesday, April 13, 2016 06:09 - CONCLUSION: Diffuse bilateral infiltrates Jorge Vicente MD Liver Ultrasound 04/12/16 0000 Signed Impressions: Service Date/Time: Tuesday, April 12, 2016 13:19 - CONCLUSION: 1. Pericholecystic fluid with dilatation of the intrahepatic ducts but no common duct dilatation. 2. Cholecystitis is not excluded. Intrahepatic duct dilatation without common duct dilatation. MRCP could be performed for further evaluation if clinically indicated. Brock Gross MD Abdomen/Pelvis CT 04/11/16 1520 Signed Impressions: Service Date/Time: Monday, April 11, 2016 15:52 - CONCLUSION: Sludge or debris in the gallbladder. Otherwise, appears unremarkable. I do not see obvious etiology for patient's pelvic pain. There is no fluid present. Abhijit Garcia MD FACR Objective Remarks GENERAL: NAD SKIN: Warm and dry. HEAD: Normocephalic. EYES: No scleral icterus. No injection or drainage. NECK: Supple, trachea midline. No JVD or lymphadenopathy. CARDIOVASCULAR: Regular rate and rhythm without murmurs, gallops, or rubs. RESPIRATORY: Breath sounds equal bilaterally. No accessory muscle use. GASTROINTESTINAL: Abdomen soft, mildly tender, nondistended. inc c/d/i MUSCULOSKELETAL: No cyanosis, or edema. BACK: Nontender without obvious deformity. No CVA tenderness. A/P Problem List: (1) Septic shock ICD Code: A41.9 Status: Resolved (2) Pyelonephritis ICD Code: N12 Status: Acute (3) Lactic acidosis ICD Code: E87.2 Status: Resolved (4) Thrombocytopenia ICD Code: D69.6 Status: Resolved (5) Hyperglycemia ICD Code: R73.9 Status: Acute (6) Dehydration ICD Code: E86.0 Status: Resolved (7) Abdominal pain ICD Code: R10.9 Status: Acute (8) Poorly controlled diabetes mellitus ICD Code: E11.65 Status: Chronic (9) Type 2 diabetes mellitus ICD Code: E11.9 Status: Chronic Assessment and Plan 35-year-old female with Septic shock -resolved. Lactic acidosis -resolved. Cholecystitis: Status post lap cholecystectomy. Management per Gen. surgery will sign off as of today. Continue current postop care Dehydration Acute kidney insufficiency- resolved. -d/c gentle fluid hydration Septic shock-resolved Acute pyelonephritis-Klebsiella pneumonia; currently on Azactam and vancomycin per infectious disease specialist Bacteremia?: 1 positive blood culture, repeat blood culture preliminary negative 1 day. Continue current antibiotics. Infectious disease specialist Lactic acidosis-resolved Transaminitis- hepatitis profile negative. Liver ultrasound noted. MRCP with fatty liver. LFTs trending down Thrombocytopenia -resolved -Monitor CBC, CMP, coags -Thrombocytopenia is most likely secondary to DIC from severe sepsis now resolved -Appreciate input from gastroenterology Hyperglycemia Type 2 diabetes -Sliding-scale insulin, Levemir 10 units every 12 PROPH: -Bilateral lower extremity SCDs. Avoid chemical DVT prophylaxis because of thrombocytopenia Thony Brian MD Apr 15, 2016 11:18
[2016-04-15] MEDS ORDERED: POTASSIUM CHLORIDE 20 MEQ CONTROLLED RELEASE TAB PO ONE (12:00)
[2016-04-15] MEDS ORDERED: PHARMACY ORDERED LAB XX ONE (13:45)
--- NOTE | 2016-04-15 14:52 | PD.ID.CON ---
History of Present Illness Service ID Consult Requested By /Yann TANNER Reason for Consult Evaluation and Mment of Kleb pneumo bacteremia, UTI and cholecystitis. Primary Care Physician No Primary Care Physician Diagnoses: History of Present Illness is a 35-year-old AAF with history of type 2 diabetes for the last 19 years, history of a left groin abscess with MRSA last year, who presented to the emergency department with symptoms of fever nausea vomiting and left lower quadrant abdominal pain. The patient noted poor oral intake since due to nausea and vomiting. The patient denies any diarrhea, denies any dysuria, frequency, or urgency, but did notice change of color in her urine. She does have a history of diabetes and takes metformin and sliding scale regular insulin. In the emergency department patient was found to have 103F sinus tachycardia 133 heart rate with within normal range blood pressure 113/60 with a map of 70 initially. Patient received IV ciprofloxacin, 3 L normal saline boluses and I have submitted to hospitalist service initially and received 1 dose of IV ciprofloxacin in the ED. Patient had white count of 5.3 with 30% bandemia. Platelet count was 92 initially later dropped to 57, second lactic acid was 2.9. Patient's blood pressure continued to deteriorate and remain persistently in mid 70s despite receiving a total of 6 L IV normal saline boluses. Critical care medicine was consulted and patient was started on Levophed at 8 mics per minute. Patient was started on IV vancomycin and IV Azactam with presumed source of acute pyelonephritis. CT abdomen pelvis shows gallbladder sludge no other acute findings. Due to ongoing RUQ pain and tenderness Gen Surgery was consulted and patient underwent Lap Cholecystectomy. Patient was transferred to [facility] for surgery. ID consulted for eval and mment of Kleb pneumo bacteremia and UTI and cholecystitis. Review of Systems Constitutional: COMPLAINS OF: Fever, Chills, Change in appetite, DENIES: Diaphoretic episodes, Fatigue, Weight gain, Weight loss, Dizziness, Night Sweats Endocrine: DENIES: Abnorml menstrual pattern, Heat/cold intolerance, Polydipsia , Polyuria, Polyphagia Eyes: DENIES: Blurred vision, Diplopia, Eye inflammation, Eye pain, Vision loss , Photosensitivity, Double Vision Ears, nose, mouth, throat: DENIES: Tinnitus, Hearing loss, Vertigo, Nasal discharge, Oral lesions, Throat pain, Hoarseness, Ear Pain, Running Nose, Epistaxis, Sinus Pain, Toothache, Odynophagia Respiratory: DENIES: Apneas, Cough, Snoring, Wheezing, Hemoptysis, Sputum production, Shortness of breath Cardiovascular: DENIES: Chest pain, Palpitations, Syncope, Dyspnea on Exertion , PND, Lower Extremity Edema, Orthopnea, Claudication Gastrointestinal: COMPLAINS OF: Abdominal pain, Nausea, Vomiting, DENIES: Black stools, Bloody stools, Constipation, Diarrhea, Difficulty Swallowing, Anorexia Genitourinary: DENIES: Abnormal vaginal bleeding, Dysmenorrhea, Dyspareunia, Sexual dysfunction, Urinary frequency, Urinary incontinence, Urgency, Hematuria , Dysuria, Nocturia, Vaginal discharge Musculoskeletal: COMPLAINS OF: Back pain, DENIES: Joint pain, Muscle aches, Stiffness, Joint Swelling, Neck pain Integumentary: DENIES: Abnormal pigmentation, Pruritus, Rash, Nail changes, Breast masses, Breast skin changes, Nipple discharge Hematologic/lymphatic: DENIES: Bruising, Lymphadenopathy Immunologic/allergic: DENIES: Eczema, Urticaria Neurologic: DENIES: Abnormal gait, Headache, Localized weakness, Paresthesias, Seizures, Speech Problems, Tremor, Poor Balance Psychiatric: DENIES: Anxiety, Confusion, Mood changes, Depression, Hallucinations, Agitation, Suicidal Ideation, Homicidal Ideation, Delusions Past Family Social History Allergies: Coded Allergies: Amoxicillin (Verified Allergy, Severe, RASH, 04/11/16) Menthol (Verified Allergy, Intermediate, HIVES, BURNING, 04/11/16) Penicillin (Verified Allergy, Intermediate, RASH, 04/11/16) *MDRO Multi-Drug Resistant Organism (Verified Adverse Reaction, Unknown, MRSA, 04/12/16) MRSA (groin wound) - 09/18/15 Uncoded Allergies: icy hot (Adverse Reaction, Mild, Burning, 11/23/13) Burning skin Past Medical History Type 2 Diabetes Hx of L groin abscess August 2015 Viral meningitis 2001 Past Surgical History 2 I&D of left groin abscess August 2015 Reported Medications Reported Meds & Active Scripts Active Zofran Odt (Ondansetron Odt) 4 Mg Tab 4 Mg SL Q6HR PRN Cipro (Ciprofloxacin HCl) 500 Mg Tab 500 Mg PO BID 7 Days Reported Humalog Inj (Insulin Human Lispro) 1,000 Unit/10 Ml Vial 1-9 Units SQ ACHS Max dose at bedtime:( )units; sugars< 70,(0)units; sugars 150-199,(1)unit; sugars 200-249,(3)units; sugars 250-299,(5)units; sugars 300-349,(7)units; sugars more than 349,(9)units. Metformin (Metformin HCl) 500 Mg Tab 1,000 Mg PO BIDPC With meals Active Ordered Medications Current Medications Medications (Trade) Dose Ordered Sig/Cas Route Start Time Stop Time Status Last Admin (D50w (Vial) Inj) 25 ml UNSCH PRN IV PUSH 04/11/16 19:45 (Glucagon Inj) 1 mg UNSCH PRN OTHER 04/11/16 19:45 (NS Flush) 2 ml UNSCH PRN FLUSH 04/11/16 19:45 (NS Flush) 2 ml BID FLUSH 04/11/16 21:00 04/14/16 20:36 (Zofran Inj) 4 mg Q6H PRN IVP 04/11/16 19:45 04/15/16 17:14 (Dulcolax Supp) 10 mg DAILY PRN [place] 04/11/16 19:45 (Tylenol) 650 mg Q6H PRN PO 04/11/16 19:45 04/15/16 00:13 (Duncan 5-325 Mg) 1 tab Q4H PRN PO 04/11/16 19:45 04/13/16 15:38 (Morphine Inj) 2 mg Q3H PRN IV 04/11/16 19:45 04/15/16 04:35 Miscellaneous Information 1 Q361D XX 04/11/16 22:00 04/11/16 22:00 (Chlorhexidine 2% Cloth) 3 pack Taper DAILY@04 TOP 04/12/16 04:00 04/08/17 03:59 04/13/16 04:00 (Chlorhexidine 2% Cloth) 3 pack UNSCH PRN TOP 04/11/16 22:00 (NovoLOG SUPPLEMENTAL SCALE) 1 Q6HR SQ 04/12/16 02:00 04/15/16 16:58 (Levemir Inj) 10 units Q12HR SQ 04/12/16 09:00 Hold 04/12/16 11:02 (NS Flush) 2 ml UNSCH PRN IV FLUSH 04/12/16 07:00 (NS Flush) 2 ml BID IV FLUSH 04/12/16 09:00 04/14/16 08:37 (Toradol Inj) 30 mg Q6H PRN IM 04/13/16 22:00 04/17/16 21:59 (Protonix) 40 mg DAILY PO 04/15/16 09:00 04/15/16 09:10 (Levaquin) 750 mg DAILY PO 04/15/16 14:30 04/15/16 15:34 (Reglan Inj) 10 mg Q6H PRN IV 04/15/16 18:30 (Phenergan Supp) 25 mg Q6H PRN [place] 04/15/16 18:30 (Diflucan) 100 mg DAILY PO 04/16/16 09:00 04/19/16 08:59 Family History reviewed and NC to current ID problems. Social History Smokes 1-2 cigarettes per day, occasionally uses alcohol socially. Denies IVDA Physical Exam Vital Signs Vital Signs Date Time Temp Pulse Resp B/P Pulse Ox O2 Delivery O2 Flow Rate FiO2 04/15/16 12:00 98.2 99 20 126/66 95 04/15/16 08:38 96 21 04/15/16 07:52 98.2 90 20 120/71 95 04/15/16 04:00 98.6 94 18 112/69 96 04/15/16 00:00 99.6 96 18 104/55 96 04/14/16 20:08 93 04/14/16 20:00 98.6 111 18 104/59 95 04/14/16 18:29 98.8 04/14/16 17:20 101.7 04/14/16 16:00 100.0 113 17 126/74 96 Physical Exam GENERAL: This is a well-nourished, well-developed patient, in no apparent distress. SKIN: No rashes. HEAD: Atraumatic. Normocephalic. No temporal or scalp tenderness. EYES: Pupils equal round and reactive. Extraocular motions intact. No scleral icterus. No injection or drainage. ENT: Nose without bleeding, purulent drainage or septal hematoma. Throat without erythema, tonsillar hypertrophy or exudate. Uvula midline. Airway patent. NECK: Trachea midline.Supple, nontender, no meningeal signs. CARDIOVASCULAR: Regular rate and rhythm without murmurs, gallops, or rubs. RESPIRATORY: Clear to auscultation. Breath sounds equal bilaterally. No wheezes , rales, or rhonchi. GASTROINTESTINAL: Abdomen soft, non-tender, nondistended. Lap sites with no e/o infection. MUSCULOSKELETAL: Extremities without clubbing, cyanosis, or edema. No joint tenderness, effusion, or edema noted. No calf tenderness. Negative Homans sign bilaterally. NEUROLOGICAL: Awake and alert. Grossly nonfocal Psych: cooperative IV line sites with no e/o infection. Laboratory Laboratory Tests Test 04/15/16 03:48 White Blood Count 5.6 Red Blood Count 3.41 Hemoglobin 9.6 Hematocrit 28.5 Mean Corpuscular Volume 83.8 Mean Corpuscular Hemoglobin 28.2 Mean Corpuscular Hemoglobin 33.7 Concent Red Cell Distribution Width 13.1 Platelet Count 164 Mean Platelet Volume 8.2 Neutrophils (%) (Auto) Lymphocytes (%) (Auto) Monocytes (%) (Auto) Eosinophils (%) (Auto) Basophils (%) (Auto) Neutrophils # (Auto) Lymphocytes # (Auto) Monocytes # (Auto) Eosinophils # (Auto) Basophils # (Auto) CBC Comment AUTO DIFF Differential Total Cells 100 Counted Neutrophils % (Manual) 61 Band Neutrophils % 3 Lymphocytes % 24 Monocytes % 8 Neutrophils # (Manual) 3.6 Myelocytes 1 Differential Comment FINAL DIFF MANUAL Plasma Cells 3 Platelet Estimate NORMAL Platelet Morphology Comment NORMAL Red Cell Morphology Comment NORMAL Sodium Level 138 Potassium Level 3.1 Chloride Level 108 Carbon Dioxide Level 21.3 Anion Gap 9 Blood Urea Nitrogen 5 Creatinine 0.39 Estimat Glomerular Filtration 224 Rate Random Glucose 183 Calcium Level 7.5 Total Bilirubin 0.3 Aspartate Amino Transf 50 (AST/SGOT) Alanine Aminotransferase 76 (ALT/SGPT) Alkaline Phosphatase 66 Total Protein 5.0 Albumin 1.9 Date/Time Procedure Status Source Growth 04/14/16 11:50 Aerobic Blood Culture - Preliminary Resulted Blood Peripheral NO GROWTH IN 1 DAY 04/14/16 11:50 Anaerobic Blood Culture - Preliminary Resulted Blood Peripheral NO GROWTH IN 1 DAY 04/12/16 06:52 Genital Culture - Preliminary Resulted Genital Vaginal Soraida Albicans 04/12/16 06:52 Cancelled Wound Other 04/11/16 20:00 Aerobic Blood Culture - Final Resulted Blood Peripheral Klebsiella Pneumoniae 04/11/16 20:00 Anaerobic Blood Culture - Preliminary Resulted Blood Peripheral NO GROWTH IN 4 DAYS 04/11/16 15:35 Urine Culture - Final Complete Urine Clean Catch Klebsiella Pneumoniae Result Diagram: 04/15/16 0348 04/15/16 0348 Imaging Last Impressions Cholangiopancreatography MRI 04/13/16 0000 Signed Impressions: Service Date/Time: Wednesday, April 13, 2016 09:50 - CONCLUSION: 1. Thickened gallbladder wall with edema. Gallstones or biliary duct dilatation is not seen. 2. Fatty infiltration of the liver. Jorge Ross MD Chest X-Ray 04/13/16 0000 Signed Impressions: Service Date/Time: Wednesday, April 13, 2016 06:09 - CONCLUSION: Diffuse bilateral infiltrates Jorge Vicente MD Liver Ultrasound 04/12/16 0000 Signed Impressions: Service Date/Time: Tuesday, April 12, 2016 13:19 - CONCLUSION: 1. Pericholecystic fluid with dilatation of the intrahepatic ducts but no common duct dilatation. 2. Cholecystitis is not excluded. Intrahepatic duct dilatation without common duct dilatation. MRCP could be performed for further evaluation if clinically indicated. Brock Gross MD Abdomen/Pelvis CT 04/11/16 1520 Signed Impressions: Service Date/Time: Monday, April 11, 2016 15:52 - CONCLUSION: Sludge or debris in the gallbladder. Otherwise, appears unremarkable. I do not see obvious etiology for patient's pelvic pain. There is no fluid present. Abhijit Garcia MD FACR Assessment and Plan Assessment and Plan Sepsis with Septic shock on admission. Kleb pneumo bacteremia Acute cholecystitis s/p Lap Cholecystectomy. Kleb pneumo UTI ? pyelonephritis. DM uncontrolled Vulvovaginal candidiasis. Recs DC Vanco IV DC Azactam IV Start Oral Levaquin If blood cultures remain negative at 72 hours ok to DC patient on oral levaquin 750 mg po daily for total of 10 days. Follow up with PCP Follow up with Recommend repeat blood culture after 5 days of stopping all antibiotics to ensure clearance of bacteremia. Follow cultures Follow clinically. d/w patient and RN. Nses Kilpatrick MD Apr 15, 2016 14:52
[2016-04-15] MEDS: LEVOFLOXACIN 750 MG TAB PO SCH (15:34)
[2016-04-15 16:02] LABS: HEMOGLOBIN A1a 1.3 %; HEMOGLOBIN A1b 1.1 %; HEMOGLOBIN Ao 77.7 %; HEMOGLOBIN F 1.5 %; HEMOGLOBIN LA1C 2.5 %; HEMOGLOBIN P3 4.1 %
[2016-04-15] MEDS ORDERED: PROMETHAZINE HCL 25 MG SUPP PR PRN (18:30)
[2016-04-15] MEDS ORDERED: METOCLOPRAMIDE HCL 10 MG/2 ML VIAL IV PRN (18:30)
[2016-04-16] VITALS: BP 119/68; PULSE 90; RESP 17; TEMP 99.3; O2SAT 98
[2016-04-16] MEDS: ACETAMINOPHEN 325 MG TAB PO PRN ×3 (01:46→23:12)
[2016-04-16] MEDS: CHLORHEXIDINE GLUCONATE 2 % 1 PACK (2 CLOTHS) TOP SCH ×2 (03:40→23:10)
[2016-04-16] MEDS: INSULIN ASPART SUPPLEMENTAL SCALE SQ SCH ×4 (05:06→23:10)
[2016-04-16 05:46] LABS: AUTOMATED NEUTROPHIL # 3.1 TH/MM3 (1.8-7.7); BASOPHIL % 0.4 % (0.0-2.0); EOSINOPHIL % 0.7 % (0.0-4.0); HEMATOCRIT 29.3 % (35.0-46.0); LYMPH % 25.1 % (9.0-44.0); LYMPHOCYTE # 1.4 TH/MM3 (1.0-4.8); MEAN CELL VOLUME 84.3 FL (80.0-100.0); MEAN CORPUSCULAR HEMOGLOBIN 28.7 PG (27.0-34.0); MONO % 16.6 % (0.0-8.0); NEUT % 57.2 % (16.0-70.0); PLATELET COUNT 287 TH/MM3 (150-450); RED BLOOD COUNT 3.48 MIL/MM3 (4.00-5.30); RED CELL DISTRIBUTION WIDTH 12.9 % (11.6-17.2); WHITE BLOOD COUNT 5.4 TH/MM3 (4.0-11.0)
[2016-04-16 05:50] LABS: ALT (GPT) 71 U/L (10-53); ANION GAP 9 MEQ/L (5-15); AST (GOT) 30 U/L (15-37); BICARBONATE 22.3 MEQ/L (21.0-32.0); BLOOD UREA NITROGEN 2 MG/DL (7-18); CHLORIDE 108 MEQ/L (98-107); GLOMERULAR FILTRATION RATE 262 ML/MIN (>89); POTASSIUM 3.4 MEQ/L (3.5-5.1); SODIUM (NA) 139 MEQ/L (136-145)
[2016-04-16 05:52] LABS: ALKALINE PHOSPHATASE 65 U/L (45-117); HEMO FLAGS AUTO DIFF; TOTAL BILIRUBIN ADULT 0.2 MG/DL (0.2-1.0)
[2016-04-16 08:00] VITALS: BP 122/72; PULSE 81; RESP 19; TEMP 97.4; O2SAT 95
[2016-04-16 08:42] LABS: BANDS 5 % (0-6); BASOPHILS 1 % (0-2); CORRECTED NUCLEATED RBC 1 /100 WBC (0-0); EOSINOPHILS 1 % (0-4); METAMYELOCYTES 3 % (0-1); MYELOCYTES 1 % (0-0); NEUTROPHIL # MANUAL DIFF 3.1 TH/MM3 (1.8-7.7); PLASMA CELLS 4 % (0-0); PLATELET ESTIMATE SMEAR NORMAL (NORMAL); PLATELET MORPHOLOGY NORMAL (NORMAL); POLYS (SEG NEUTROPHILS) 49 % (16-70); SCAN/DIFF FINAL DIFF MANUAL; WBC DIFF SAMPLE 100
[2016-04-16] MEDS: LEVOFLOXACIN 750 MG TAB PO SCH (08:46)
[2016-04-16] MEDS: PANTOPRAZOLE SOD 40 MG DELAYED RELEASE TAB PO SCH (08:46)
[2016-04-16] MEDS: SODIUM CHLORIDE 0.9% FLUSH 5 ML FLUSH IV FLUSH SCH ×2 (08:46→21:20)
[2016-04-16] MEDS: FLUCONAZOLE 100 MG TAB PO SCH (08:46)
[2016-04-16] MEDS: SODIUM CHLORIDE 0.9% FLUSH 5 ML FLUSH FLUSH SCH (08:46)
--- NOTE | 2016-04-16 09:59 | HHI.PR ---
Subjective Remarks Follow-up septic shock/acute pyelonephritis/cholecystectomy 04/14/16-patient seen and examined; reports some abdominal pain otherwise stable and denies any nausea and vomiting. Currently afebrile. 04/15/16-patient seen and examined; still with some abdominal pain but stable. Afebrile 04/16/16-patient seen and examined, she has multiple episode of nausea yesterday which now have resolved. Currently stable and denies any significant abdominal pain. Afebrile Objective Vitals Vital Signs Date Time Temp Pulse Resp B/P Pulse Ox O2 Delivery O2 Flow Rate FiO2 04/16/16 08:00 97.4 81 19 122/72 95 04/16/16 00:00 99.3 90 17 119/68 98 04/15/16 20:00 99.0 95 17 108/70 98 04/15/16 20:00 90 04/15/16 16:21 95 21 04/15/16 15:56 98.4 100 18 117/77 95 04/15/16 12:00 98.2 99 20 126/66 95 I/O 04/15/16 04/15/16 04/15/16 04/16/16 04/16/16 04/16/16 06:59 14:59 22:59 06:59 14:59 22:59 Intake Total 1489 ml 960 ml 813 ml 240 ml 120 ml Output Total 900 ml 600 ml 250 ml 350 ml Balance 589 ml 360 ml 563 ml -110 ml 120 ml Intake Oral 240 ml 960 ml 240 ml 240 ml 120 ml IV Total 1249 ml 573 ml 0 ml Output Urine Total 900 ml 600 ml 250 ml 350 ml # Bowel Movements 1 Result Diagram: 04/16/16 0443 04/16/16 0443 Imaging Last Impressions Cholangiopancreatography MRI 04/13/16 0000 Signed Impressions: Service Date/Time: Wednesday, April 13, 2016 09:50 - CONCLUSION: 1. Thickened gallbladder wall with edema. Gallstones or biliary duct dilatation is not seen. 2. Fatty infiltration of the liver. Jorge Ross MD Chest X-Ray 04/13/16 0000 Signed Impressions: Service Date/Time: Wednesday, April 13, 2016 06:09 - CONCLUSION: Diffuse bilateral infiltrates Jorge Vicente MD Liver Ultrasound 04/12/16 0000 Signed Impressions: Service Date/Time: Tuesday, April 12, 2016 13:19 - CONCLUSION: 1. Pericholecystic fluid with dilatation of the intrahepatic ducts but no common duct dilatation. 2. Cholecystitis is not excluded. Intrahepatic duct dilatation without common duct dilatation. MRCP could be performed for further evaluation if clinically indicated. Brock Gross MD Abdomen/Pelvis CT 04/11/16 1520 Signed Impressions: Service Date/Time: Monday, April 11, 2016 15:52 - CONCLUSION: Sludge or debris in the gallbladder. Otherwise, appears unremarkable. I do not see obvious etiology for patient's pelvic pain. There is no fluid present. Abhijit Garcia MD FACR Objective Remarks GENERAL: NAD SKIN: Warm and dry. HEAD: Normocephalic. EYES: No scleral icterus. No injection or drainage. NECK: Supple, trachea midline. No JVD or lymphadenopathy. CARDIOVASCULAR: Regular rate and rhythm without murmurs, gallops, or rubs. RESPIRATORY: Breath sounds equal bilaterally. No accessory muscle use. GASTROINTESTINAL: Abdomen soft, mildly tender, nondistended. inc c/d/i MUSCULOSKELETAL: No cyanosis, or edema. BACK: Nontender without obvious deformity. No CVA tenderness. A/P Problem List: (1) Septic shock ICD Code: A41.9 Status: Resolved (2) Pyelonephritis ICD Code: N12 Status: Acute (3) Lactic acidosis ICD Code: E87.2 Status: Resolved (4) Thrombocytopenia ICD Code: D69.6 Status: Resolved (5) Hyperglycemia ICD Code: R73.9 Status: Acute (6) Dehydration ICD Code: E86.0 Status: Resolved (7) Abdominal pain ICD Code: R10.9 Status: Acute (8) Poorly controlled diabetes mellitus ICD Code: E11.65 Status: Chronic (9) Type 2 diabetes mellitus ICD Code: E11.9 Status: Chronic Assessment and Plan 35-year-old female with Septic shock -resolved. Lactic acidosis -resolved. Cholecystitis: Status post lap cholecystectomy. Management per Gen. surgery signed off . Continue current postop care Dehydration Acute kidney insufficiency- resolved. -d/c gentle fluid hydration Septic shock-resolved Acute pyelonephritis-Klebsiella pneumonia; currently on Azactam and vancomycin per infectious disease specialist Klebsiella pneumonia Bacteremia: Status post Azactam and vancomycin, now on Levaquin 750 mg daily pending final repeat culture; currently negative times today. Appreciate input from Infectious disease specialist Lactic acidosis-resolved Transaminitis- hepatitis profile negative. Liver ultrasound noted. MRCP with fatty liver. LFTs trending down Thrombocytopenia -resolved -Monitor CBC, CMP, coags -Thrombocytopenia is most likely secondary to DIC from severe sepsis -now resolved -Appreciate input from gastroenterology who signed off Hyperglycemia Type 2 diabetes -Sliding-scale insulin, Levemir 10 units every 12 -A1c 11.2; will need outpatient follow-up with endocrinology PROPH: -Bilateral lower extremity SCDs. Avoid chemical DVT prophylaxis because of thrombocytopenia Discharge Planning Likely discharge 04/17/16 pending final blood culture report Thony Brian MD Apr 16, 2016 09:59
[2016-04-16] MEDS ORDERED: POTASSIUM CHLORIDE 25 MEQ EFFERVESCENT TAB PO ONE (11:00)
[2016-04-16 11:41] VITALS: BP 126/76; PULSE 72; RESP 19; TEMP 98.7; O2SAT 98
[2016-04-16 15:55] VITALS: BP 115/76; PULSE 81; RESP 20; TEMP 98.4; O2SAT 99
[2016-04-16 19:17] VITALS: PULSE 86
[2016-04-16 20:00] VITALS: BP 118/77; RESP 20; TEMP 98.1; O2SAT 97
[2016-04-17] VITALS: BP 125/75; PULSE 77; RESP 20; TEMP 98.6; O2SAT 96
[2016-04-17] MEDS: ONDANSETRON HCL 4 MG/2 ML VIAL IVP PRN (02:56)
[2016-04-17 04:00] VITALS: BP 124/79; PULSE 71; RESP 20; TEMP 98.2; O2SAT 95
[2016-04-17] MEDS: INSULIN ASPART SUPPLEMENTAL SCALE SQ SCH (06:01)
[2016-04-17 08:00] VITALS: BP 121/71; PULSE 72; RESP 16; TEMP 97.9; O2SAT 96
[2016-04-17] MEDS ORDERED: LEVA750T PO (09:16)
[2016-04-17] MEDS ORDERED: HYDR-3516 PO (09:16)
[2016-04-17] MEDS ORDERED: LANTUS2P SQ (09:16)
[2016-04-17] MEDS ORDERED: DIFL100T PO (09:16)
[2016-04-17] MEDS ORDERED: PERI8.6T PO (09:16)
--- NOTE | 2016-04-17 09:19 | HHI.PR ---
Subjective Remarks Follow-up septic shock/acute pyelonephritis/cholecystectomy 04/14/16-patient seen and examined; reports some abdominal pain otherwise stable and denies any nausea and vomiting. Currently afebrile. 04/15/16-patient seen and examined; still with some abdominal pain but stable. Afebrile 04/16/16-patient seen and examined, she has multiple episode of nausea yesterday which now have resolved. Currently stable and denies any significant abdominal pain. Afebrile 04/17/16-patient seen and examined, denies any abdominal pain. No more nausea and vomiting and tolerated by mouth without any complication. Currently afebrile and ready for discharge. Objective Vitals Vital Signs Date Time Temp Pulse Resp B/P Pulse Ox O2 Delivery O2 Flow Rate FiO2 04/17/16 08:00 97.9 72 16 121/71 96 04/17/16 04:00 98.2 71 20 124/79 95 04/17/16 00:00 98.6 77 20 125/75 96 04/16/16 20:00 98.1 20 118/77 97 04/16/16 19:17 86 04/16/16 15:55 98.4 81 20 115/76 99 04/16/16 11:41 98.7 72 19 126/76 98 I/O 04/16/16 04/16/16 04/16/16 04/17/16 04/17/16 04/17/16 07:00 15:00 23:00 07:00 15:00 23:00 Intake Total 240 ml 1080 ml 240 ml 240 ml Output Total 350 ml 400 ml 700 ml Balance -110 ml 680 ml 240 ml -460 ml Intake Oral 240 ml 1080 ml 240 ml 240 ml IV Total 0 ml Output Urine Total 350 ml 400 ml 700 ml # Voids 3 # Bowel Movements 1 Result Diagram: 04/16/16 0443 04/16/16 0443 Imaging Last Impressions Cholangiopancreatography MRI 04/13/16 0000 Signed Impressions: Service Date/Time: Wednesday, April 13, 2016 09:50 - CONCLUSION: 1. Thickened gallbladder wall with edema. Gallstones or biliary duct dilatation is not seen. 2. Fatty infiltration of the liver. Jorge Ross MD Chest X-Ray 04/13/16 0000 Signed Impressions: Service Date/Time: Wednesday, April 13, 2016 06:09 - CONCLUSION: Diffuse bilateral infiltrates Jorge Vicente MD Liver Ultrasound 04/12/16 0000 Signed Impressions: Service Date/Time: Tuesday, April 12, 2016 13:19 - CONCLUSION: 1. Pericholecystic fluid with dilatation of the intrahepatic ducts but no common duct dilatation. 2. Cholecystitis is not excluded. Intrahepatic duct dilatation without common duct dilatation. MRCP could be performed for further evaluation if clinically indicated. Brock Gross MD Abdomen/Pelvis CT 04/11/16 1520 Signed Impressions: Service Date/Time: Monday, April 11, 2016 15:52 - CONCLUSION: Sludge or debris in the gallbladder. Otherwise, appears unremarkable. I do not see obvious etiology for patient's pelvic pain. There is no fluid present. Abhijit Garcia MD FACR Objective Remarks GENERAL: NAD SKIN: Warm and dry. HEAD: Normocephalic. EYES: No scleral icterus. No injection or drainage. NECK: Supple, trachea midline. No JVD or lymphadenopathy. CARDIOVASCULAR: Regular rate and rhythm without murmurs, gallops, or rubs. RESPIRATORY: Breath sounds equal bilaterally. No accessory muscle use. GASTROINTESTINAL: Abdomen soft, non tender, nondistended. inc c/d/i MUSCULOSKELETAL: No cyanosis, or edema. BACK: Nontender without obvious deformity. No CVA tenderness. Procedures Lap cholecystectomy A/P Problem List: (1) Septic shock ICD Code: A41.9 Status: Resolved (2) Pyelonephritis ICD Code: N12 Status: Resolved (3) Lactic acidosis ICD Code: E87.2 Status: Resolved (4) Thrombocytopenia ICD Code: D69.6 Status: Resolved (5) Hyperglycemia ICD Code: R73.9 Status: Acute (6) Dehydration ICD Code: E86.0 Status: Resolved (7) Abdominal pain ICD Code: R10.9 Status: Resolved (8) Poorly controlled diabetes mellitus ICD Code: E11.65 Status: Chronic (9) Type 2 diabetes mellitus ICD Code: E11.9 Status: Chronic (10) Sepsis ICD Code: A41.9 Status: Resolved (11) Cholecystitis ICD Code: K81.9 Status: Resolved Assessment and Plan 35-year-old female with Septic shock -resolved. Lactic acidosis -resolved. Cholecystitis: Status post lap cholecystectomy. Management per Gen. surgery signed off . Stable Dehydration Acute kidney insufficiency- resolved. Septic shock-resolved Acute pyelonephritis-Klebsiella pneumonia; currently on Azactam and vancomycin per infectious disease specialist Klebsiella pneumonia Bacteremia: Status post Azactam and vancomycin, now on Levaquin 750 mg daily pending final repeat culture; currently negative 2 days. Appreciate input from Infectious disease specialist Lactic acidosis-resolved Transaminitis- hepatitis profile negative. Liver ultrasound noted. MRCP with fatty liver. LFTs trending down Thrombocytopenia -resolved -Monitor CBC, CMP, coags -Thrombocytopenia is most likely secondary to DIC from severe sepsis -now resolved -Appreciate input from gastroenterology who signed off Hyperglycemia Type 2 diabetes -Sliding-scale insulin, Levemir 10 units every 12 -A1c 11.2; will need outpatient follow-up with endocrinology PROPH: -Bilateral lower extremity SCDs. Avoid chemical DVT prophylaxis because of thrombocytopenia Discharge Planning Discharge home today Problem Qualifiers (1) Sepsis: Qualified Code: A41.9 - Sepsis, due to unspecified organism Thony Brian MD Apr 17, 2016 09:19 Thony Brian MD Apr 17, 2016 09:19
--- NOTE | 2016-04-17 09:25 | HHI.DS ---
Discharge Summary Admission Date Apr 11, 2016 at 19:37 Discharge Date: Apr 17, 2016 Admitting Diagnosis pyelonephritis; sepsis (1) Septic shock ICD Code: A41.9 (2) Pyelonephritis ICD Code: N12 (3) Lactic acidosis ICD Code: E87.2 (4) Thrombocytopenia ICD Code: D69.6 (5) Hyperglycemia ICD Code: R73.9 (6) Dehydration ICD Code: E86.0 (7) Abdominal pain ICD Code: R10.9 (8) Poorly controlled diabetes mellitus ICD Code: E11.65 (9) Type 2 diabetes mellitus ICD Code: E11.9 (10) Sepsis ICD Code: A41.9 (11) Cholecystitis ICD Code: K81.9 Procedures Lap cholecystectomy Brief History - From Admission Patient is a 35-year-old female with history of type 2 diabetes for the last 19 years, history of a left groin abscess with MRSA last year, who presented to the emergency department yesterday with symptoms of fever nausea vomiting and left lower quadrant abdominal pain. The patient noted poor oral intake since due to nausea and vomiting. The patient denies any diarrhea, denies any dysuria, frequency, or urgency, but did notice change of color in her urine. She does have a history of diabetes and takes metformin and sliding scale regular insulin. In the emergency department patient was found to have 103F sinus tachycardia 133 heart rate with within normal range blood pressure 113/60 with a map of 70 initially. Patient received IV ciprofloxacin, 3 L normal saline boluses and I have submitted to hospitalist service initially and received 1 dose of IV ciprofloxacin in the ED. Patient had white count of 5.3 with 30% bandemia. Platelet count was 92 initially later dropped to 57, second lactic acid was 2.9. Patient's blood pressure continued to deteriorate and remain persistently in mid 70s despite receiving a total of 6 L IV normal saline boluses. Critical care medicine was consulted and patient was started on Levophed at 8 mics per minute. I evaluated the patient in the ICU. She appears to be in mild-to- moderate distress, still remains on Levophed for septic shock. I have started her on IV vancomycin and IV Azactam. Most likely source of infection is acute pyelonephritis. CT abdomen pelvis shows gallbladder sludge no other acute findings CBC/BMP: 04/16/16 0443 04/16/16 0443 Significant Findings Laboratory Tests Test 04/15/16 04/16/16 03:48 04:43 Red Blood Count 3.41 MIL/MM3 3.48 MIL/MM3 (4.00-5.30) (4.00-5.30) Hemoglobin 9.6 GM/DL 10.0 GM/DL (11.6-15.3) (11.6-15.3) Hematocrit 28.5 % 29.3 % (35.0-46.0) (35.0-46.0) Myelocytes 1 % (0-0) 1 % (0-0) Plasma Cells 3 % (0-0) 4 % (0-0) Potassium Level 3.1 MEQ/L 3.4 MEQ/L (3.5-5.1) (3.5-5.1) Chloride Level 108 MEQ/L 108 MEQ/L (98-107) (98-107) Blood Urea Nitrogen 5 MG/DL (7-18) 2 MG/DL (7-18) Creatinine 0.39 MG/DL 0.34 MG/DL (0.50-1.00) (0.50-1.00) Random Glucose 183 MG/DL 198 MG/DL (74-106) (74-106) Hemoglobin A1c 11.2 % (4.3-6.0) Calcium Level 7.5 MG/DL 8.0 MG/DL (8.5-10.1) (8.5-10.1) Aspartate Amino Transf 50 U/L (15-37) (AST/SGOT) Alanine Aminotransferase 76 U/L (10-53) 71 U/L (10-53) (ALT/SGPT) Total Protein 5.0 GM/DL 5.4 GM/DL (6.4-8.2) (6.4-8.2) Albumin 1.9 GM/DL 1.9 GM/DL (3.4-5.0) (3.4-5.0) Monocytes (%) (Auto) 16.6 % (0.0-8.0) Monocytes % 9 % (0-8) Metamyelocytes 3 % (0-1) Nucleated Red Blood Cells 1 /100 WBC (0-0) PE at Discharge GENERAL: NAD SKIN: Warm and dry. HEAD: Normocephalic. EYES: No scleral icterus. No injection or drainage. NECK: Supple, trachea midline. No JVD or lymphadenopathy. CARDIOVASCULAR: Regular rate and rhythm without murmurs, gallops, or rubs. RESPIRATORY: Breath sounds equal bilaterally. No accessory muscle use. GASTROINTESTINAL: Abdomen soft, non tender, nondistended. inc c/d/i MUSCULOSKELETAL: No cyanosis, or edema. BACK: Nontender without obvious deformity. No CVA tenderness. Hospital Course Patient admitted to hospital secondary to sepsis and suffers septic shock for which she was under the care of critical care medicine. Treated with IV antibiotics, aggressive fluid resuscitation. General surgery was consulted secondary to cholecystitis, and when patient more stable she underwent lap cholecystectomy. She was diagnosed with acute pyelonephritis as well as Klebsiella pneumonia bacteremia for which patient was placed on IV antibiotics by infectious disease specialist and subsequently switched to by mouth Levaquin. Due to transaminitis, gastroenterology was consulted and the liver as well as MRCP were performed without any abnormal findings. Prior to discharge LFTs trended down and patient hepatitis panel was negative. Renal function improved with gentle IV fluid hydration. She was placed on insulin sliding scale along with Lantus 10 units twice a day. DVT and GI prophylaxis were provided. Prior to discharge, patient vitals improved and her condition remains stable. Pt Condition on Discharge: Stable Discharge Disposition: Discharge Home Discharge Time: <= 30 minutes Discharge Instructions DIET: Follow Instructions for: Diabetic Diet Activities you can perform: Regular-No Restrictions Follow up Referrals: PCP Follow-up - 1 Week Surgical - 1 Week with Benjamin Weems MD New Medications: Insulin Glargine Inj (Lantus Inj) 1,000 Unit/10 Ml Vial 15 UNITS SQ HS Blood Sugar Management #100 Ref 3 VIAL Sennosides-Docusate Sodium (Jeanette-Colace) 8.6-50 Mg Tab 1 TAB PO BID PRN Constipation #20 Ref 0 TAB Fluconazole (Diflucan) 100 Mg Tab 100 MG PO DAILY Infection #7 TAB Hydrocodone-Acetaminophen (Hydrocodone-Acetaminophen) 5-325 mg Tab 1 TAB PO Q4H PRN PAIN SCALE 3 TO 5 #15 TAB Levofloxacin (Levaquin) 750 Mg Tab 750 MG PO DAILY Infection #10 TAB Continued Medications: Insulin Lispro (Human) Inj (Humalog Inj) 1,000 Unit/10 Ml Vial 1-9 UNITS SQ ACHS Max dose at bedtime:( )units; sugars< 70,(0)units; sugars 150 -199,(1)unit; sugars 200-249,(3)units; sugars 250-299,(5)units; sugars 300-349,( 7)units; sugars more than 349,(9)units. Blood Sugar Management #1 Ref 0 VIAL Metformin (Metformin) 500 Mg Tab 1000 MG PO BIDPC With meals Blood Sugar Management #60 Ref 0 TAB Ondansetron Odt (Zofran Odt) 4 Mg Tab 4 MG SL Q6HR PRN Nausea/Vomiting #7 Ref 0 TAB Discontinued Medications: Ciprofloxacin (Cipro) 500 Mg Tab 500 MG PO BID Infection Days 7 Ref 0 TAB Thony Brian MD Apr 17, 2016 09:24
[2016-04-17] MEDS: FLUCONAZOLE 100 MG TAB PO SCH (10:08)
[2016-04-17] MEDS: PANTOPRAZOLE SOD 40 MG DELAYED RELEASE TAB PO SCH (10:08)
[2016-04-17] MEDS: LEVOFLOXACIN 750 MG TAB PO SCH (10:08)
[2016-04-17] MEDS: SODIUM CHLORIDE 0.9% FLUSH 5 ML FLUSH IV FLUSH SCH (10:09)
--- NOTE | 2016-04-19 13:20 | MP ---
cc: DESHAWN WEEMS MD DATE OF SURGERY: 04/13/2016 PREOPERATIVE DIAGNOSIS Rule out acalculous acute cholecystitis. POSTOPERATIVE DIAGNOSIS Acalculous cholecystitis. PROCEDURE PERFORMED Laparoscopic cholecystectomy. SURGEON Dr. Deshawn Weems TUBE REPAIRER See OR sheet. ANESTHESIA General endotracheal. IV FLUIDS 900 cc. ESTIMATED BLOOD LOSS 10 cc. DRAINS None. COMPLICATIONS None. WOUND CLASSIFICATION Clean contaminated. SPECIMEN Gallbladder. FINDINGS Distended edematous and thickened gallbladder. Several adhesions on the left side. Dilated small and large bowel. INDICATION The patient is a 35-year-old female with a history of diabetes who presents with complaints of fevers, nausea, vomiting and bilateral upper quadrant abdominal pain. She was admitted hypertensive, resuscitated, placed on antibiotics and had further radiologic work-up concerning for acalculous cholecystitis with a thickened edematous gallbladder wall. She also had elevated LFTs. The decision was made for possible observation versus operative intervention and diagnostic laparoscopy. This was discussed with the patient in detail. Operative intervention was decided and agreed and planned to proceed. DETAILS OF PROCEDURE The patient was taken to the operating suite and placed in supine position. She was prepped and draped in the usual sterile fashion after induction of general endotracheal anesthesia. A brief timeout was undertaken to identify the correct patient, procedure and surgical site, and all were in agreement with this. Attention was directed to the umbilicus. A small stab lane incision was made superior to the umbilicus with an 11 blade. A Veress needle was used. Intra-abdominal placement confirmed with a saline drop test. The abdomen was insufflated to 15 mmHg pneumoperitoneum. Next, the Veress needle was exchanged for a 5 mm trocar under direct visualization. The trocar was introduced and on cursory inspection there was no evidence of injury. There was noted to be several adhesions on the left side with somewhat dilated viable bowel. The gallbladder was noted to be edematous. There was a minimal amount of fluid around the gallbladder. At this point three other trocars were placed, 10 mm epigastric followed by two 5 mm right subcostal, anterior axillary and midclavicular line. The patient was placed in steep reverse Trendelenburg and airplaned to the left. The gallbladder fundus was grasped and retracted cephalad. The cystic duct and cystic artery were dissected out with [place] graspers. Two clips were placed proximal on the cystic artery and one distal. The cystic artery was clipped. Next, three clips were placed proximal on the cystic duct and one distal. The gallbladder was removed with a Hook electrocautery. Hemostasis was obtained to the gallbladder bed. The gallbladder was placed in an EndoCatch bag and removed through the epigastric port. Suction irrigation was used to irrigate the fossa and right upper quadrant. Hemostasis was obtained at the gallbladder fossa. Again on observation the small bowel and colon were noted to be viable. They were somewhat distended. With minimal exploration again there were some adhesions in the left side. Next, the pneumoperitoneum was removed. The epigastric port was closed with a 0 Vicryl. 4-0 Monocryl was placed at all skin incisions followed by sterile dressings. All lap and instrument counts were correct at the end of the procedure. The patient tolerated the procedure well. There were no intraoperative complications. The patient was extubated and taken stable to the PACU. MD SWATHI Poole/SANAM /9:46 AM /1:05 PM
== END 2016-04-17 13:00 | disposition home or self-care (01) | DRG 853 ==
LOC: PHED 14:47 → PHEDA 19:37 → PHICU 23:23 → HPAC 04-13 18:46 → N03A 04-13 23:49 → N07B 04-14 13:19
PROVIDERS: ADMIT Hospitalist; ATTEND Hospitalist
PROC: 0FT44ZZ Resection of Gallbladder, Percutaneous Endoscopic Approach (ICD-10-PCS; principal; 2016-04-13 19:41)
DX: A41.59 Other Gram-negative sepsis (principal); R65.21 Severe sepsis with septic shock; D65 Disseminated intravascular coagulation [defibrination syndrome]; K81.0 Acute cholecystitis; E87.2 Acidosis; E11.65 Type 2 diabetes mellitus with hyperglycemia; B37.3 Candidiasis of vulva and vagina; N10 Acute pyelonephritis; E86.0 Dehydration; E78.00 Pure hypercholesterolemia, unspecified; E87.6 Hypokalemia; E83.51 Hypocalcemia; E83.39 Other disorders of phosphorus metabolism; K76.0 Fatty (change of) liver, not elsewhere classified; R19.7 Diarrhea, unspecified; F17.210 Nicotine dependence, cigarettes, uncomplicated; Z79.4 Long term (current) use of insulin; Z86.14 Personal history of Methicillin resistant Staphylococcus aureus infection; Z88.0 Allergy status to penicillin; Z88.1 Allergy status to other antibiotic agents
CPT/HCPCS: 36600; 71010; 74176; 74181; 76377; 76705; 76937; 80053; 80074; 80202; 81001; 82805; 82948; 83036; 83605; 83690; 83735; 84100; 85007; 85025; 85027; 85610; 85730; 87040; 87070; 87077; 87086; 87186; 87205; 87641; 88304; 94150; 96365; 96375; C9113; J0744; J0780; J1815; J1885; J2270; J2370; J2405; J2710; J2765; J3010; J3370; J3480; J7030; J7040; J7050; J7120